=== PATIENT | female | born 1960 | race Caucasian/White ===

== ENCOUNTER → 2018-02-18 | Outpatient (CLI) | payer BC ==
--- NOTE | 2018-02-18 15:14 | US ---
EXAMINATION TYPE: US axilla LT DATE OF EXAM: 02/18/2018 COMPARISON: NONE CLINICAL HISTORY: R59.0 Localized enlarged lymph nodes. Enlarged hypervascular lymph node noted measuring 4.2 x 2.8 x 3.5cm. This demonstrates an abnormal ro unded morphology and extensive cortical thickening of at least 1.1 cm. Adjacent to this there are mu ltiple additional enlarged and prominent lymph nodes left axillary noted. IMPRESSION: Abnormal left axillary adenopathy with the largest suspicious lymph node measuring up to 4.2 cm with extensive cortical thickening. Biopsy is recommended in addition to diagnostic mammograp hic workup if not recently performed.
== END | disposition home or self-care (01) ==
LOC: RADUSWWP 14:35
PROVIDERS: ATTEND Family Medicine
DX: R59.0 Localized enlarged lymph nodes (principal)

== ENCOUNTER 2018-03-26 08:51 | Day surgery (SDC) | payer BC ==
[2018-03-26 09:09] VITALS: BP 136/81; PULSE 68; RESP 20; TEMP 97.9
--- NOTE | 2018-03-26 10:00 | US ---
ULTRASOUND GUIDED CORE BIOPSY LEFT AXILLA LYMPH NODE: CLINICAL HISTORY: Left axillary adenopathy FINDINGS: The procedure was explained to the patient. The risks, complications, benefits and alternatives were discussed and any questions were answered. Informed consent was obtained. Patient was placed supin e on the ultrasound table and prepped and draped in the usual sterile fashion. Utilizing a 18 gauge needle, 3 passes were made into the requested left axilla lymph node. Patient was stable throughout the procedure. Pathology is pending. All elements of maximal barrier and sterile technique were utilized. IMPRESSION: 1. Successful ultrasound guided core biopsy left axilla lymph node.
== END 2018-03-26 10:00 | disposition home or self-care (01) ==
LOC: RADPROMAIN 08:51
PROVIDERS: ATTEND Family Medicine
DX: R59.0 Localized enlarged lymph nodes (principal)
CPT/HCPCS: 38505; 76942

== ENCOUNTER 2018-05-23 11:19 | Day surgery (SDC) | payer BC ==
[~2018-05-23 11:19] MED LIST: HEPARIN SODIUM,PORCINE 5,000 UNIT/ML 1 ML VIAL SQ ONE; Pre Op ABX Message 1 EACH MISC MISCELLANE ONE
[2018-05-23 11:50] VITALS: RESP 18; TEMP 98.5
[2018-05-23] MEDS ORDERED: LACTATED RINGERS 1,000 ML IV ONE (12:04)
[2018-05-23] MEDS ORDERED: ONDANSETRON 4 MG/2 ML VIAL IVP ONE (12:14)
[2018-05-23] MEDS ORDERED: DEXAMETHASONE SOD PHOS (MDV) 100 MG/10 ML VIAL IVP ONE (12:14)
[2018-05-23] MEDS ORDERED: ROPIVACAINE 5 MG/ML 30 ML VIAL MISCELLANE ONE ×2 (12:59)
[2018-05-23] MEDS ORDERED: fentaNYL (PF) 50 MCG/ML 2 ML AMP ONE (13:30)
[2018-05-23] MEDS ORDERED: MIDAZOLAM 2 MG/2 ML VIAL ONE (13:30)
[2018-05-23] MEDS ORDERED: PROPOFOL 10 MG/ML 20 ML VIAL IV ONE (13:30)
[2018-05-23] MEDS ORDERED: LIDOCAINE 1% INJ 10MG/ML (20 ML MDV) ONE (13:30)
[2018-05-23] MEDS ORDERED: IV FLUID CONTINUATION 300 ML IV ONE (14:35)
[2018-05-23] MEDS ORDERED: NALOXONE 0.4 MG/ML 1 ML VIAL IV PRN (14:41)
--- NOTE | 2018-05-23 14:44 | P.OP ---
Date of Procedure: 05/23/18 Procedure(s) Performed: PREOPERATIVE DIAGNOSIS: Adenopathy with skin rash POSTOPERATIVE DIAGNOSIS: Same PROCEDURE: Left inguinal lymph node excisional biopsy with biopsy left thigh rash SURGEON: Greg EBL: Minimal ANESTHESIA: Sedation and local COMPLICATIONS: None OPERATIVE PROCEDURE: Patient was placed in the supine position. The patient's groin and leg were prepped and draped in usual sterile fashion. The skin was localized. A small incision was made overlying the palpable node. The node was easily excised with the use of blunt dissection and cautery. Clips were also used on the small lymphatics and vasculature. This node measured approximately 3 x 1.5 cm. The subcutaneous tissues were closed using 3-0 Vicryl sutures and the skin using 4-0 Monocryl sutures. Using fresh instruments a small skin biopsy was taken of the left anterior thigh. This is about 1 cm in size. Subcutaneous tissues were closed using 3-0 Vicryl sutures in the skin using 4-0 Monocryl sutures. Steri-Strips and sterile dressings were applied. DISPOSITION: Stable to recovery room
[2018-05-23] MEDS ORDERED: HYDROcodone/APAP 5-325MG 1 EACH TAB PO ONE (14:48)
[2018-05-23 15:08] VITALS: BP 117/75; PULSE 77
== END 2018-05-23 15:19 | disposition home or self-care (01) ==
LOC: OR 11:19
PROVIDERS: ATTEND Surgery
DX: R59.1 Generalized enlarged lymph nodes (principal); L30.8 Other specified dermatitis; Z79.2 Long term (current) use of antibiotics; Z79.52 Long term (current) use of systemic steroids; Z79.899 Other long term (current) drug therapy; Z91.030 Bee allergy status; Z91.09 Other allergy status, other than to drugs and biological substances; Z78.0 Asymptomatic menopausal state; Z98.51 Tubal ligation status
CPT/HCPCS: 38500; 11100; J2250; J1644; J2405; J2001; J3010; J1100; J2795; J2704; 88305; 88307; 88341; 88342

== ENCOUNTER → 2018-05-31 | Outpatient (CLI) | payer BC ==
--- NOTE | 2018-05-31 15:38 | CT ---
EXAMINATION TYPE: CT soft tissue neck wo con DATE OF EXAM: 05/31/2018 COMPARISON: None HISTORY: 57-year-old female Multiple swollen lymph nodes. TECHNIQUE: Contiguous axial scanning of the soft tissues of the neck without IV contrast. Coronal and sagittal reconstructions performed. CT DLP: 628.7 mGycm Automated exposure control for dose reduction was used. FINDINGS: Visualized noncontrast appearance of the intracranial structures show no gross abnormality. Paranasal sinuses and mastoid air cells are well pneumatized. Prominent cerumen in the left external auditory canal. Orbits and globes are intact. Allowing for noncontrast technique, the nasopharynx is clear. Some asymmetric soft tissue in the region of the left palatine tonsil may be due to redundant tissues . Bilateral palatine calcifications suggests sequela of prior infection. The glottic and subglottic structures as well as the tracheal column are clear. Epiglottis and prevertebral soft tissues are within normal limits. There is diffuse lymphadenopathy throughout the neck including the bilateral parotid space measuring up to 1.1 cm, upper cervical spine measuring up to 1.6 cm short axis in the posterior triangle of the neck measuring up to 1.7 cm in axis. Lymphadenopathy is right greater than left. Additional innumera ble supraclavicular lymph nodes. Many are very small. IMPRESSION: DIFFUSE CERVICAL LYMPHADENOPATHY ALSO INVOLVING THE PAROTID SPACE AND POSTERIOR TRIANGLE OF THE NECK, RIGHT GREATER THAN LEFT. LYMPH NODES MEASURE UP TO 1.7 CM SHORT AXIS. CORRELATE FOR SYSTEMIC INFECTI ONS AND LYMPHOMA. CHEST, ABDOMEN, AND PELVIS REPORTED SEPARATELY.
--- NOTE | 2018-05-31 16:25 | CT ---
EXAMINATION TYPE: CT ChestAbdPelvis wo con DATE OF EXAM: 05/31/2018 COMPARISON: None HISTORY: 57 year-old female multiple swollen lymph nodes. TECHNIQUE: Contiguous axial scanning of the chest, abdomen, and pelvis without IV contrast. Coronal a nd sagittal reconstructions performed. CT DLP: 1182.1 mGycm Automated exposure control for dose reduction was used. FINDINGS: Chest: Heart normal size without pericardial effusion. Coronary vascular calcifications are present. Borderline ectasia ascending aorta 3.5 cm. There is conventional arch vessel branching anatomy. Evaluation of the lungs shows strandy atelectasis anterior mid lung regions. No consolidation or pleu ral effusion. ABDOMEN: Liver enlarged measuring 19.7 cm. Noncontrast appearance of the liver otherwise grossly unremarkable. There is cholelithiasis with gallstones measuring up to 1.2 cm. There is a 1.2 cm lipid rich adrenal adenoma with density of -1.7 Hounsfield units. Noncontrast appearance of the kidneys, spleen, and pancreas show no gross abnormality. Small divertic ulum of the second portion of the duodenum incidentally noted. No dilated small bowel, free fluid, or free air. Mild stool burden. Oral contrast progressed to the s plenic flexure. Left hemicolonic diverticulosis without pericolonic inflammatory change. LYMPHADENOPATHY FOLLOWS: Base of the neck along the posterior triangle measuring up to 1.4 cm, right greater than left. Numerous small supraclavicular lymph nodes, greater on the right measuring up to 1.0 cm. Bilateral axillary measuring up to 1.8 cm on the right and 2.4 cm on the left. Nodule within the posterior lateral right breast measuring 1.1 cm, axial image 34. Unclear if this re presents an anterior axillary lymph node are small breast mass, reference sagittal image 107. Numerous scattered nonenlarged mesenteric lymph nodes. Borderline sized retroperitoneal lymph nodes m easure up to 7 mm images along the right common iliac chain. Lymph node in the right retroperitoneum measures up to 6 mm, axial image 93. Along the obturator chain measuring 1.1 cm, right greater than left. Along the external iliac chain measuring 1.4 cm on the right and 1.1 cm on the left. Bilateral inguin al chains measuring up to 1.4 cm on the right and 1.5 cm on left. PELVIS: The posterior fibroid along the lower uterine segment partially exophytic measuring 5.0 cm wide. Blad ji is distended. No abnormal fluid collection in the pelvis. Bulging laxity of the levator ani muscu lature suggests pelvic floor relaxation. BONES: Degenerative changes lower lumbar spine. Endplate spondylosis mid to lower thoracic spine. Hemangioma within T10 vertebral body. No osseous destructive process seen. IMPRESSION: 1. BASE OF NECK LYMPHADENOPATHY (UP TO 1.4 CM), SUPRACLAVICULAR LYMPHADENOPATHY, BILATERAL AXILLARY L YMPHADENOPATHY (UP TO 2.4 CM), NUMEROUS NONENLARGED MESENTERIC LYMPH NODES, BORDERLINE SIZED RETROPER ITONEAL LYMPH NODES (MEASURING UP TO 7 MM), AND PELVIC LYMPHADENOPATHY ALONG THE OBTURATOR AND ILIAC CHAINS WELL THE BILATERAL INGUINAL REGIONS MEASURING UP TO 1.5 CM. CORRELATE FOR LYMPHOMA. 2. NODULE WITHIN THE POSTERIOR LATERAL RIGHT BREAST MEASURES 1.1 CM. UNCERTAIN IF THIS REPRESENTS AN ANTERIOR RIGHT AXILLARY LYMPH NODE OR BREAST MASS. CORRELATE WITH DIAGNOSTIC MAMMOGRAPHIC WORKUP. 3. INCIDENTAL: CHOLELITHIASIS, A 1.2 CM LIPID RICH ADRENAL ADENOMA ON THE LEFT, SIGMOID DIVERTICULOSI S, 5 CM POSTERIOR UTERINE FIBROID, AND PELVIC FLOOR RELAXATION.
== END | disposition home or self-care (01) ==
LOC: RADCTMAIN 09:25
PROVIDERS: ATTEND Internal Medicine Hematology & Oncology
DX: K80.20 Calculus of gallbladder without cholecystitis without obstruction (principal); R59.0 Localized enlarged lymph nodes; D35.02 Benign neoplasm of left adrenal gland; K57.30 Diverticulosis of large intestine without perforation or abscess without bleeding; D25.9 Leiomyoma of uterus, unspecified; N63.10 Unspecified lump in the right breast, unspecified quadrant; N81.89 Other female genital prolapse; Z88.8 Allergy status to other drugs, medicaments and biological substances; Z91.030 Bee allergy status
CPT/HCPCS: 70490; 71250; 74176

== ENCOUNTER 2018-06-11 10:43 | Day surgery (SDC) | payer BC ==
[2018-06-10 08:27] VITALS: BMI 29.2
[~2018-06-11 10:43] MED LIST changes: -HEPARIN SODIUM,PORCINE 5,000 UNIT/ML 1 ML VIAL SQ ONE; +LACTATED RINGERS 1,000 ML IV SCH; +LIDOCAINE 1% 20 ML VIAL (10MG/ML) FOR IV START INTRADERMA PRN; +MIDAZOLAM 2 MG/2 ML VIAL IV PRN; -Pre Op ABX Message 1 EACH MISC MISCELLANE ONE
[2018-06-11 11:13] VITALS: RESP 16; TEMP 97.6
[2018-06-11] MEDS ORDERED: PROPOFOL 10 MG/ML 20 ML VIAL IV ONE (12:01)
[2018-06-11] MEDS ORDERED: LIDOCAINE 1% INJ 10MG/ML (20 ML MDV) ONE (12:01)
[2018-06-11 12:48] VITALS: BP 123/73; PULSE 75
[2018-06-11 12:56] LABS: Basophils % (A) 1 %; Eosinophils # (A) 0.4 k/uL (0-0.7); Eosinophils % (A) 5 %; HCT 44.7 % (34.0-46.0); HGB 13.7 gm/dL (11.4-16.0); Lymphocytes # (A) 0.7 k/uL (1.0-4.8); Lymphocytes % (A) 10 %; MCH 26.2 pg (25.0-35.0); MCHC 30.8 g/dL (31.0-37.0); MCV 85.1 fL (80.0-100.0); Mean Platelet Volume 7.7; Monocytes # (A) 0.7 k/uL (0-1.0); Monocytes % (A) 9 %; Neutrophils # (A) 5.5 k/uL (1.3-7.7); Neutrophils % (A) 73 %; Platelet Count 195 k/uL (150-450); RBC 5.25 m/uL (3.80-5.40); RDW 13.8 % (11.5-15.5); WBC 7.6 k/uL (3.8-10.6)
--- NOTE | 2018-06-11 13:20 | PCN ---
PROCEDURE NOTE DATE OF PROCEDURE: 06/11/2018. PREOPERATIVE DIAGNOSIS: Lymphoma. POSTOPERATIVE DIAGNOSIS: Lymphoma. ANESTHESIA: Local with IV systemic sedation. DETAILS: Utilizing sterile technique the skin overlying the right iliac crest was prepared with ChloraPrep and alcohol. No BETADINE was used due to allergy. After adequate systemic sedation, a size 11, 4-inch [employer] needle was utilized to access the periosteum with ease. A total of 16 mL of aspirate and 2 core biopsies were obtained. The patient tolerated the procedure very well. There was no immediate procedure related complication. TOTAL BLOOD LOSS: Less than 1 mL. RESULTS: Pending. MMODL / IJN: [id number] /
== END 2018-06-11 13:11 | disposition home or self-care (01) ==
LOC: OR 10:43
PROVIDERS: ATTEND Internal Medicine Hematology & Oncology
DX: C86.5 Angioimmunoblastic T-cell lymphoma (principal); B37.0 Candidal stomatitis; R63.4 Abnormal weight loss; Z68.29 Body mass index [BMI] 29.0-29.9, adult; Z88.8 Allergy status to other drugs, medicaments and biological substances; Z91.030 Bee allergy status; Z98.51 Tubal ligation status
CPT/HCPCS: 38222; 85025; J2001; J2704

== ENCOUNTER → 2018-06-15 | Outpatient (CLI) | payer BC ==
--- NOTE | 2018-06-19 09:15 | PE ---
Nuclear medicine PET/CT HISTORY: Lymphoma, initial Patient received 12.1 mCi F-18 FDG intravenously in delayed scanning performed from the skull base to the mid thighs. Localization and attenuation correction CT scan was performed Correlation to CT chest abdomen pelvis 05/31/2018 Neck and chest: There is extensive adenopathy present greater on the right side of the neck with hype rmetabolic uptake, SUV approximately 5.5-6, along the posterior anterior cervical chains, adenopathy present in the bilateral axillary regions, hypermetabolic uptake SUV 5.12-7.7, as well as retrocaval pretracheal node which shows no hypermetabolic uptake. Along the mid esophagus posteriorly there is a node, there is a with mild uptake, SUV only 4. There is no evident lung mass. Abdomen pelvis: Gallstones are present. There is no evident liver mass. Retrocaval nodes are present with mild hypermetabolic uptake, SUV only 3.5. Periaortic node on the left also show some uptake, SUV 3.3, nodes in the left iliac location and right iliac location are enlarged and show associated hype rmetabolic uptake SUV 5.9-14.2. Bilateral inguinal nodes show associated hypermetabolic uptake, SUV 3 -4.8. Osseous structures are unremarkable IMPRESSION: Findings compatible with patient's history of lymphoma.
== END | disposition home or self-care (01) ==
LOC: RADPETMAIN 14:21
PROVIDERS: ATTEND Internal Medicine Hematology & Oncology
DX: C86.5 Angioimmunoblastic T-cell lymphoma (principal)
CPT/HCPCS: 78815; A9552

== ENCOUNTER → 2019-01-23 | Outpatient (CLI) | payer BC ==
--- NOTE | 2019-01-23 12:33 | CT ---
EXAMINATION TYPE: CT soft tissue neck wo con DATE OF EXAM: 01/23/2019 COMPARISON: 05/31/[address] 06/15/2018 HISTORY: 58-year-old female Lymphoma/rt side neck mass marked with a bb TECHNIQUE: Contiguous axial scanning of the soft tissues of the neck without IV contrast. Coronal and sagittal reconstructions performed. CT DLP: 364 mGycm Automated exposure control for dose reduction was used. FINDINGS: Right anterior chest wall injection port is present. Visualized intercranial structures, orbits and g lobes, paranasal sinuses, and mastoid air cells appear clear. Lack of IV contrast limits assessment of the mucosal space. Nasopharynx and oropharynx appear grossly clear. Epiglottis and prevertebral soft tissues are normal. There is motion artifact at the level of the larynx without gross anomaly seen here. The tracheal column and visualized upper lungs appear clear. There has been dramatic improvement in the radius diffuse cervical lymphadenopathy. Palpable marker along the right side of the upper neck overlies an enlarged 1.2 cm right submandibula r space lymph node. Which appears to be new from 05/31/2018. Residual scattered small cervical lymph n odes are present on both sides. In the visualized upper thorax, a 1.1 cm superior right paratracheal lymph node previously measured 1 .5 cm. The thyroid and submandibular glands appear grossly unremarkable. Parotid glands are mildly atrophic. Bones: Mild degenerative disc disease C5-C6. IMPRESSION: 1. DRAMATIC IMPROVEMENT IN THE PREVIOUS DIFFUSE CERVICAL LYMPHADENOPATHY COMPARED TO 05/31/2018. 2. HOWEVER, THE PALPABLE MARKER ON THE RIGHT INDICATES AN ENLARGED SOLITARY SUBMANDIBULAR LYMPH NODE MEASURING 1.2 CM THAT IS NEW FROM 05/31/2018. PATIENT SHOULD BE MONITORED FOR RECURRENT DISEASE.
== END ==
LOC: RADCTMAIN 11:32
PROVIDERS: ATTEND Nurse Practitioner Adult Health
DX: C86.5 Angioimmunoblastic T-cell lymphoma (principal); R22.0 Localized swelling, mass and lump, head
CPT/HCPCS: 70490

== ENCOUNTER → 2019-01-25 | Outpatient (CLI) | payer BC ==
[2019-01-25 11:30] LABS: Anisocytosis Slight; Basophils % (A) 1 %; Eosinophils # (A) 0.1 k/uL (0-0.7); Eosinophils % (A) 3 %; HCT 35.4 % (34.0-46.0); HGB 11.6 gm/dL (11.4-16.0); Hypochromasia Slight; Lymphocytes # (A) 0.7 k/uL (1.0-4.8); Lymphocytes % (A) 16 %; MCH 31.9 pg (25.0-35.0); MCHC 32.9 g/dL (31.0-37.0); MCV 96.8 fL (80.0-100.0); Macrocytosis Slight; Mean Platelet Volume 8.4; Monocytes # (A) 0.3 k/uL (0-1.0); Monocytes % (A) 7 %; Neutrophils # (A) 3.2 k/uL (1.3-7.7); Neutrophils % (A) 69 %; Platelet Count 129 k/uL (150-450); RBC 3.65 m/uL (3.80-5.40); RDW 19.3 % (11.5-15.5); WBC 4.6 k/uL (3.8-10.6)
[2019-01-25 17:08] LABS: Albumin 3.2 g/dL (3.80-4.90); Anion Gap 7.4 mmol/L (4.00-12.00); Calcium 8.6 mg/dL (8.7-10.3); Carbon Dioxide 28.6 mmol/L (21.6-31.8); Globulin 1.6 g/dL (1.6-3.3); Magnesium 1.8 mg/dL (1.5-2.4); Potassium 4.2 mmol/L (3.5-5.5); Total Bilirubin 0.5 mg/dL (0.3-1.2); Total Protein 4.8 g/dL (6.2-8.2); Uric Acid 5.1 mg/dL (2.9-7.7)
== END | disposition home or self-care (01) ==
LOC: LABWHC1 10:56
PROVIDERS: ATTEND Nurse Practitioner Adult Health
DX: C86.5 Angioimmunoblastic T-cell lymphoma (principal); B37.0 Candidal stomatitis; R21 Rash and other nonspecific skin eruption; Z71.3 Dietary counseling and surveillance
CPT/HCPCS: 36415; 80053; 83615; 83735; 84550; 85025

== ENCOUNTER → 2019-01-31 | Outpatient (CLI) | payer BC ==
--- NOTE | 2019-02-03 17:23 | PE ---
EXAMINATION TYPE: PET CT fusion skull to thigh DATE OF EXAM: 01/31/2019 COMPARISON: PET/CT June 15, 2018. Whole body CT May 31, 2018. 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 Had left groin surgery in 2018 per patient. History of chemotherapy completed treatment December 02, 2018 per patient. TECHNIQUE: Following the intravenous administration of 14.193 mCi of F-18 FDG, whole body images are performed from the skull base to the midthigh. Images are reviewed on the computer in the coronal, axial, and sagittal planes. Reconstructed rotating images are created on independent workstation and reviewed on the computer. A noncontrast CT is performed in conjunction with the PET scan. SCAN: Subsequent Scan FINDINGS: Mean SUV mediastinum: 0.62 Liver mean SUV: 1.4 SKULL BASE AND NECK: There appears to be worsening bilateral innumerable hypermetabolic lymph nodes, larger in size and more prominent hypermetabolic uptake in the right neck versus left neck. For refe tamice a right submandibular lymph node axial image 37 measures 1.5 x 1.3 cm current study versus 0.6 x 0.6 cm prior study image 38, max SUV is 9.43 on current study. There is hypermetabolic adenopathy i n the posterior cervical triangle. Hypermetabolic adenopathy extends from above the hyoid bone to sup raclavicular region. There appear to be abnormal hypermetabolic masses in the visualized bilateral upper extremities on th e MIP image similar or slightly more prominent from prior. CHEST, MEDIASTINUM, AND HILAR REGION: Abnormal hypermetabolic bilateral axillary lymph nodes remain p resent. Some are clearly diminished in size from prior study. For reference anterior superior left ax illary lymph node measured 4.7 x 2.3 cm prior study image 63 versus 1.7 x 0.7 cm current study image 65. There are however larger mediastinal lymph nodes which are more hypermetabolic, for reference subcari nal lymph node measures 1.6 x 1.2 cm axial image 82, max SUV is 14.81. ABDOMEN AND PELVIS: Spleen is enlarged in size with some hypermetabolic foci for reference axial imag e [address] correlate. There are more hypermetabolic retroperitoneal lymph nodes increased in size along course of aorta jess aterally extending along iliac chain vessels into the bilateral groin region. Fairly large right exte rnal iliac chain lymph node measuring 2.7 x 1.8 cm axial image 201 is fairly stable in size from prio r. There is enlarging hypermetabolic right groin lymph node measuring 2.6 x 2.3 cm axial image 220, m ax SUV is 28.87. OSSEOUS STRUCTURES: No areas of suspicious hypermetabolic uptake. OTHER CT: There is new right internal jugular Mediport catheter terminating in SVC. Moderate coronary artery calcification is redemonstrated which is noted marked underlying coronary ar susy disease. Dependent calcified gallstones are again seen. Low dense thickening to left adrenal gland consistent with benign lipid rich adenomas redemonstrated. Calcified lower uterine segment suspected fibroid uterus is once again redemonstrated. IMPRESSION: Overall mixed response with some lymph nodes increasing and decreasing in size as well as some stable lymph nodes. Majority lymph nodes show increased hypermetabolic uptake on current study versus prior. Overall more lymph nodes enlarging in size and hypermetabolic uptake versus stable or i mproving noted. Mild to moderate cerebral acute on chronic paranasal sinus disease is seen as detailed above
== END | disposition home or self-care (01) ==
LOC: RADPETMAIN 14:28
PROVIDERS: ATTEND Internal Medicine Hematology & Oncology
DX: C86.5 Angioimmunoblastic T-cell lymphoma (principal); Z92.21 Personal history of antineoplastic chemotherapy
CPT/HCPCS: 78815; A9552

== ENCOUNTER → 2019-06-07 | Outpatient (CLI) | payer BC ==
--- NOTE | 2019-06-08 13:36 | PE ---
Nuclear medicine PET/CT HISTORY: Angioimmunoblastic T-cell lymphoma, subsequent Patient received 11.8 mCi F-18 FDG intravenously in delayed scanning was performed from the skull bas e to the mid thighs. Localization and attenuation correction CT scan was performed. Correlation to prior nuclear medicine PET/CT dated 01/31/2019. Neck and chest: no cervical, mediastinal or hilar adenopathy. Left axillary node is enlarged with a short axis of 1.4 cm which has decreased in size, however multiple additional axillary nodes have dec reased in size. No suspicious hypermetabolic uptake. Coronary artery calcifications are present. No e vident lung mass. No pleural pericardial effusion. There is a port in the right chest, catheter tip c ourses via the internal jugular vein into the superior vena cava. ABDOMEN: Multiple dependent stones are present within the gallbladder. There is no retroperitoneal ad enopathy or evident liver mass. There is no suspicious hypermetabolic uptake. Diverticular change pre sent within the sigmoid colon. Probable calcified fibroid within the uterus. Postop changes are noted to the left groin. There are some scattered lymph nodes within the groin bilaterally, some mild prom inence of inguinal nodes is present of the nodes are decreased in size from prior exam and there is n o associated hypermetabolic uptake. Osseous structures within normal limits. IMPRESSION: Marked treatment response as described.
== END | disposition home or self-care (01) ==
LOC: RADPETMAIN 07:46
PROVIDERS: ATTEND Internal Medicine Hematology & Oncology
DX: C86.5 Angioimmunoblastic T-cell lymphoma (principal); I25.10 Atherosclerotic heart disease of native coronary artery without angina pectoris; K80.20 Calculus of gallbladder without cholecystitis without obstruction
CPT/HCPCS: 78815; A9552

== ENCOUNTER → 2019-08-29 | Outpatient (CLI) | payer BC ==
--- NOTE | 2019-09-01 12:44 | PE ---
"Nuclear medicine PET/CT HISTORY: Lymphoma, subsequent Patient received 12.7 mCi F-18 FDG intravenously in delayed scanning was performed from the skull bas e to the mid thighs. Localization and attenuation correction CT scan was performed. Correlation to prior nuclear medicine PET/CT 06/07/2019 Neck and CHEST: There are multiple small nodules along the anterior and posterior cervical chains, goldstein bmandibular location on the left, supraclavicular region on the left which show associated hypermetab olic uptake but are not enlarged. SUV is approximately 2.9-4.8. Extensive axillary adenopathy left greater than right. SUV on the left 6.4, retrocaval pretracheal ad enopathy SUV 2.9, bihilar mild hilar uptake, SUV 2.8 on the right, subcarinal uptake 2.8 SUV. There i s a small left pleural effusion. There are coronary artery calcifications present. ABDOMEN: The spleen is enlarged. There are areas of low-attenuation consistent with splenic infarcts, the spleen shows increased uptake with SUV 6.4-7.2 aside from the areas of low uptake likely corresp onding to areas of infarction. Gallstones are present. Liver shows no mass or suspicious hypermetabolic uptake. Some mild uptake pre sent in the portal region. There is likely a duodenal diverticulum present. No ascites. There is a fi broid uterus with calcifications, uterus is bulky. Diverticular change associated with the sigmoid co jasbir. Minimal fluid present within the pelvis. Bilateral groin uptake, multiple nodes show hypermetabolic uptake and show enlargement bilaterally, S UV 2.2-5. Osseous structures show mild diffuse increased uptake likely due to marrow stimulation. Extremities: Within the subcutaneous fat in the upper extremities there are soft tissue masses which show associated hypermetabolic uptake bilaterally better seen on the left measuring 9 mm on axial rafiq ge 26, SUV 6.7. IMPRESSION: Interval progression in multiple areas of suspicious hypermetabolic uptake and lymphadeno alonso. Probable splenic infarctions, splenomegaly. Left pleural effusion. A Yellow level critical message alert has been initiated for Gera Dhillon MD~[id number] via the [employer] | Critical Results System on 09/01/2019 12:41 PM. This message alert has been sent to Gera Dhillon MD~DEONTE via the preferences provided by the clinician for the receipt of Radiology Critical Findings. Message ID [id number]."
== END | disposition home or self-care (01) ==
LOC: RADPETMAIN 17:08
PROVIDERS: ATTEND Internal Medicine Hematology & Oncology
DX: J90 Pleural effusion, not elsewhere classified (principal)
CPT/HCPCS: 78815; A9552

== ENCOUNTER 2019-09-03 08:53 | Day surgery (SDC) | payer BC ==
[2019-09-03 09:23] VITALS: RESP 18; TEMP 98.1
[2019-09-03 10:39] VITALS: BP 116/60; PULSE 97
--- NOTE | 2019-09-03 11:22 | US ---
ULTRASOUND GUIDED CORE BIOPSY RIGHT INGUINAL LYMPH NODE: CLINICAL HISTORY: Request for right groin lymph node biopsy FINDINGS: The procedure was explained to the patient. The risks, complications, benefits and alternatives were discussed and any questions were answered. Informed consent was obtained. Patient was placed supin e on the ultrasound table and prepped and draped in the usual sterile fashion. Utilizing a 18 gauge needle, four passes were made into the requested nodule. Patient was stable throughout the procedure. Pathology is pending. All elements of maximal barrier and sterile technique were utilized. IMPRESSION: 1. Successful ultrasound guided core biopsy right inguinal lymph node.
== END 2019-09-03 10:40 | disposition home or self-care (01) ==
LOC: RADPROMAIN 08:53
PROVIDERS: ATTEND Internal Medicine Hematology & Oncology
DX: C86.5 Angioimmunoblastic T-cell lymphoma (principal); Z88.8 Allergy status to other drugs, medicaments and biological substances
CPT/HCPCS: 38505; 76942; 88305

== ENCOUNTER 2019-09-13 10:19 | Inpatient (IN) | payer BC ==
[2019-09-13] MEDS ORDERED: SODIUM CHLORIDE 0.9% 1,000 ML IV STA ×2 (10:45→14:21)
[2019-09-13] MEDS ORDERED: LIDOCAINE VISCOUS 2% 15 ML CUP MUCOUS MEM ONE (11:19)
[2019-09-13] MEDS ORDERED: fentaNYL (PF) 50 MCG/ML 2 ML AMP IVP STA (11:19)
--- NOTE | 2019-09-13 11:21 | ED ---
General Adult HPI - General Chief complaint: Weakness Stated complaint: Weak, not eating or drinking Time Seen by Provider: 09/13/19 10:43 Source: patient, family Mode of arrival: ambulatory Limitations: physical limitation - History of Present Illness Initial comments: Dictation was produced using [employer] dictation software. please excuse any grammatical, word or spelling errors. Chief Complaint: 58-year-old female past medical history of T-cell lymphoma presents with generalized weakness and exertional fatigue. History of Present Illness: 58-year-old female she presents today with generalized weakness and exertional fatigue. Patient states she's been feeling more and more weak over the last 48-72 hours. Patient was seeing a primary care physician when she was recently diagnosed with cytomegalovirus. She has a recurrence of her T-cell lymphoma. Patient denies any constitutional symptoms. She does report she has a history of pancytopenia. She has been having multiple sores to her oral area. She's been trying to use Orajel with minimal improvement. Patient is with family family is concerned that patient might not survive to make her appointment with specialist in [place] in a couple days. Family believes that she is to be treated for cytomegalovirus. She reports not taking any immunosuppressive medications. Patient was also on a recent steroid burst dosing. The ROS documented in this emergency department record has been reviewed and confirmed by me. Those systems with pertinent positive or negative responses have been documented in the HPI. All other systems are other negative and/or noncontributory. PHYSICAL EXAM: General Impression: Alert and oriented x3, not in acute distress HEENT: Normocephalic atraumatic, extra-ocular movements intact, pupils equal and reactive to light bilaterally, dry mucous membranes, multiple aphthous ulcers to the nuchal surface and soft palate Cardiovascular: Heart regular rate and rhythm, S1&S2 audible, no murmurs, rubs or gallops Chest: Lungs clear to auscultation bilaterally, no rhonchi, no wheeze, no rales Abdomen: Bowel sounds present, abdomen soft, non-tender, non-distended, no organomegaly Musculoskeletal: Pulses present and equal in all extremities, no peripheral edema Motor: no focal deficits noted Neurological: CN II-XII grossly intact, no focal motor or sensory deficits noted Skin: Intact with no visualized rashes Psych: Normal affect and mood Rectal exam: Patient refused ED course: 58-year-old female with past medical history of T-cell lymphoma and new diagnosis of cytomegalovirus presents with generalized fatigue. As upon arrival shows blood pressure 90/49, rest of vital signs within acceptable limits. She refuses rectal exam. Patient given intravenous fluids. Laboratory evaluation obtained. Hemoglobin is 3.5 with hematocrit of 10.3. Platelet count of 40. Coag panel shows minor 1.2. Metabolic panel shows sodium 132. Lactic acidosis of 2.7. Rest metabolic panel is grossly unremarkable. Discussed patient case Dr. Harper who recommends patient be admitted to telemetry with blood transfusion. Patient be admitted to cardiac telemetry with consultation to hematology. Patient were for 2 units of transfusion. She does have scheduled CBC checks. Request by hospitalists discussion was held with hematology. Discussed patient case with Dr. Aguirre who feels patient does not need to be transferred and can currently be managed here in our hospital at this time.. Dr. Aguirre requested several labs which were ordered. Dr. Domo flynn did not fill comfortable taking care of this patient and requested that patient be transferred. Family was updated of these results and they were adamant about staying here. We discussed patient case Dr. Aguirre who still continues fill patient is an appropriate candidate for admission to our hospital. Discussed patient case to Dr. Pereira who is agreeable with patient being admitted to our facility with consultation to hematology and infectious disease. Patient family is satisfied with this disposition. EKG interpretation: Ventricular rate therefore, normal sinus rhythm, MS interval 160, care is 80, QTc 440. No MS prolongation, no QTC prolongation, no ST or T-wave changes noted. . Overall, this EKG is unremarkable - Related Data Home Medications Medication Instructions Recorded Confirmed Allopurinol [Zyloprim] 100 mg PO DAILY 09/03/19 09/13/19 Ascorbic Acid [Vitamin C] 500 mg PO DAILY 09/13/19 09/13/19 Cholecalciferol [Vitamin D3] 400 unit PO DAILY 09/13/19 09/13/19 HYDROcodone/APAP 5-325MG [[place] 1 tab PO Q6H PRN 09/13/19 09/13/19 5-325] methylPREDNISolone Dose Pack See Taper PO DAILY 09/13/19 09/13/19 [Medrol Dose Pack] Allergies Allergy/AdvReac Type Severity Reaction Status Date / Time bee venom protein (honey bee) Allergy Anaphylaxis Verified 09/13/19 12:25 iodine Allergy Rash/Hives Verified 09/13/19 12:25 Review of Systems ROS Statement: Those systems with pertinent positive or pertinent negative responses have been documented in the HPI. ROS Other: All systems not noted in ROS Statement are negative. Past Medical History Past Medical History: Cancer Additional Past Medical History / Comment(s): LYMPHOMA 2018. GENERALIZED BODY RASH-LYMPHOCYTIC DERMATITIS History of Any Multi-Drug Resistant Organisms: None Reported Additional Past Surgical History / Comment(s): c- section x2, ectopic surgery, D&C, EEXCISION LT INGUINAL LYMPH NODE WITH BIOPSY AND BX LT THIGH RASH, bone marrow bx 06/11/18 Past Anesthesia/Blood Transfusion Reactions: No Reported Reaction Past Psychological History: No Psychological Hx Reported Smoking Status: Never smoker Past Alcohol Use History: None Reported Past Drug Use History: None Reported - Past Family History Mother Family Medical History: Cancer Additional Family Medical History / Comment(s): cervical General Exam Limitations: physical limitation Course Vital Signs 09/13/19 09/13/19 09/13/19 10:24 11:27 12:27 Temperature 98.7 F Pulse Rate 93 98 102 H Respiratory 19 18 18 Rate Blood Pressure 92/49 114/98 115/56 O2 Sat by Pulse 97 100 98 Oximetry 09/13/19 09/13/19 09/13/19 13:20 14:00 14:33 Temperature Pulse Rate 99 101 H 100 Respiratory 18 18 18 Rate Blood Pressure 97/42 96/45 100/56 O2 Sat by Pulse 100 98 98 Oximetry Medical Decision Making - Lab Data Result diagrams: 09/13/19 11:40 09/13/19 11:40 Lab Results 09/13/19 09/13/19 09/13/19 Range/Units 11:40 11:40 11:40 WBC 4.5 (3.8-10.6) k/uL RBC 1.20 L (3.80-5.40) m/uL Hgb 3.5 L* (11.4-16.0) gm/dL Hct 10.3 L* (34.0-46.0) % MCV 85.7 (80.0-100.0) fL MCH 29.1 (25.0-35.0) pg MCHC 33.9 (31.0-37.0) g/dL RDW 17.5 H (11.5-15.5) % Plt Count 40 L (150-450) k/uL Neutrophils % (Manual) 44 % Lymphocytes % (Manual) 56 % Neutrophils # (Manual) 1.98 (1.3-7.7) k/uL Lymphocytes # (Manual) 2.52 (1.0-4.8) k/uL Nucleated RBCs 0 (0-0) /100 WBC Manual Slide Review Performed Hypochromasia (manual) Present Anisocytosis Slight PT (9.0-12.0) sec INR (<1.2) APTT (22.0-30.0) sec Sodium 132 L (137-145) mmol/L Potassium 4.7 (3.5-5.1) mmol/L Chloride 101 (98-107) mmol/L Carbon Dioxide 23 (22-30) mmol/L Anion Gap 8 mmol/L BUN 34 H (7-17) mg/dL Creatinine 0.87 (0.52-1.04) mg/dL Est GFR (CKD-EPI)AfAm 85 (>60 ml/min/1.73 sqM) Est GFR (CKD-EPI)NonAf 74 (>60 ml/min/1.73 sqM) Glucose 117 H (74-99) mg/dL Plasma Lactic Acid Ralph 2.7 H* (0.7-2.0) mmol/L Calcium 8.7 (8.4-10.2) mg/dL Phosphorus 4.2 (2.5-4.5) mg/dL Magnesium 2.3 (1.6-2.3) mg/dL Total Bilirubin 1.2 (0.2-1.3) mg/dL AST 27 (14-36) U/L ALT 16 (9-52) U/L Alkaline Phosphatase 63 (38-126) U/L Lactate Dehydrogenase (313-618) U/L Total Protein 6.2 L (6.3-8.2) g/dL Albumin 3.4 L (3.5-5.0) g/dL TSH 2.340 (0.465-4.680) mIU/L Free T4 1.60 (0.78-2.19) ng/dL Free T3 pg/mL 1.5 L (2.8-5.3) pg/ml Stool Occult Blood (Negative) Blood Type Blood Type Confirm Blood Type Recheck Bld Type Recheck Status Antibody Screen Crossmatch Spec Expiration Date 09/13/19 09/13/19 09/13/19 Range/Units 11:40 11:40 11:40 WBC (3.8-10.6) k/uL RBC (3.80-5.40) m/uL Hgb (11.4-16.0) gm/dL Hct (34.0-46.0) % MCV (80.0-100.0) fL MCH (25.0-35.0) pg MCHC (31.0-37.0) g/dL RDW (11.5-15.5) % Plt Count (150-450) k/uL Neutrophils % (Manual) % Lymphocytes % (Manual) % Neutrophils # (Manual) (1.3-7.7) k/uL Lymphocytes # (Manual) (1.0-4.8) k/uL Nucleated RBCs (0-0) /100 WBC Manual Slide Review Hypochromasia (manual) Anisocytosis PT 12.2 H (9.0-12.0) sec INR 1.2 H (<1.2) APTT 20.2 L (22.0-30.0) sec Sodium (137-145) mmol/L Potassium (3.5-5.1) mmol/L Chloride (98-107) mmol/L Carbon Dioxide (22-30) mmol/L Anion Gap mmol/L BUN (7-17) mg/dL Creatinine (0.52-1.04) mg/dL Est GFR (CKD-EPI)AfAm (>60 ml/min/1.73 sqM) Est GFR (CKD-EPI)NonAf (>60 ml/min/1.73 sqM) Glucose (74-99) mg/dL Plasma Lactic Acid Ralph (0.7-2.0) mmol/L Calcium (8.4-10.2) mg/dL Phosphorus (2.5-4.5) mg/dL Magnesium (1.6-2.3) mg/dL Total Bilirubin (0.2-1.3) mg/dL AST (14-36) U/L ALT (9-52) U/L Alkaline Phosphatase (38-126) U/L Lactate Dehydrogenase 1345 H (313-618) U/L Total Protein (6.3-8.2) g/dL Albumin (3.5-5.0) g/dL TSH (0.465-4.680) mIU/L Free T4 (0.78-2.19) ng/dL Free T3 pg/mL (2.8-5.3) pg/ml Stool Occult Blood (Negative) Blood Type Blood Type Confirm A Positive Blood Type Recheck Bld Type Recheck Status Antibody Screen Crossmatch Spec Expiration Date 09/13/19 09/13/19 Range/Units 12:47 13:00 WBC (3.8-10.6) k/uL RBC (3.80-5.40) m/uL Hgb (11.4-16.0) gm/dL Hct (34.0-46.0) % MCV (80.0-100.0) fL MCH (25.0-35.0) pg MCHC (31.0-37.0) g/dL RDW (11.5-15.5) % Plt Count (150-450) k/uL Neutrophils % (Manual) % Lymphocytes % (Manual) % Neutrophils # (Manual) (1.3-7.7) k/uL Lymphocytes # (Manual) (1.0-4.8) k/uL Nucleated RBCs (0-0) /100 WBC Manual Slide Review Hypochromasia (manual) Anisocytosis PT (9.0-12.0) sec INR (<1.2) APTT (22.0-30.0) sec Sodium (137-145) mmol/L Potassium (3.5-5.1) mmol/L Chloride (98-107) mmol/L Carbon Dioxide (22-30) mmol/L Anion Gap mmol/L BUN (7-17) mg/dL Creatinine (0.52-1.04) mg/dL Est GFR (CKD-EPI)AfAm (>60 ml/min/1.73 sqM) Est GFR (CKD-EPI)NonAf (>60 ml/min/1.73 sqM) Glucose (74-99) mg/dL Plasma Lactic Acid Ralph (0.7-2.0) mmol/L Calcium (8.4-10.2) mg/dL Phosphorus (2.5-4.5) mg/dL Magnesium (1.6-2.3) mg/dL Total Bilirubin (0.2-1.3) mg/dL AST (14-36) U/L ALT (9-52) U/L Alkaline Phosphatase (38-126) U/L Lactate Dehydrogenase (313-618) U/L Total Protein (6.3-8.2) g/dL Albumin (3.5-5.0) g/dL TSH (0.465-4.680) mIU/L Free T4 (0.78-2.19) ng/dL Free T3 pg/mL (2.8-5.3) pg/ml Stool Occult Blood Negative (Negative) Blood Type A Positive Blood Type Confirm Blood Type Recheck No Previous Record Bld Type Recheck Status CABO Indicated Antibody Screen NEGATIVE Crossmatch See Detail Spec Expiration Date 09/16/20192299 Disposition Clinical Impression: Anemia Disposition: ADMITTED IP TO THIS [facility] Condition: Fair Referrals: Yeyo Rainey MD [Primary Care Provider] - 1-2 days Decision Time: 14:56
[2019-09-13 12:10] LABS: Anisocytosis Slight; MCH 29.1 pg (25.0-35.0); MCHC 33.9 g/dL (31.0-37.0); MCV 85.7 fL (80.0-100.0); Mean Platelet Volume 8.9; RDW 17.5 % (11.5-15.5); WBC 4.5 k/uL (3.8-10.6)
[2019-09-13 12:12] LABS: HGB 3.5 gm/dL (11.4-16.0)
[2019-09-13 12:13] LABS: HCT 10.3 % (34.0-46.0)
[2019-09-13 12:20] LABS: Albumin 3.4 g/dL (3.5-5.0); Calcium 8.7 mg/dL (8.4-10.2); Magnesium 2.3 mg/dL (1.6-2.3); Phosphorus 4.2 mg/dL (2.5-4.5); Potassium 4.7 mmol/L (3.5-5.1); Total Bilirubin 1.2 mg/dL (0.2-1.3); Total Protein 6.2 g/dL (6.3-8.2)
[2019-09-13 12:22] LABS: INR 1.2 (<1.2); Prothrombin Time 12.2 sec (9.0-12.0)
[2019-09-13 12:27] LABS: Hypochromasia (M) Present; Lymphocytes # (M) 2.52 k/uL (1.0-4.8); Neutrophils # (M) 1.98 k/uL (1.3-7.7); Neutrophils % (M) 44 %; Nucleated Red Blood Cells 0 /100 WBC (0-0); Total Cells Counted 100
[2019-09-13 12:28] LABS: Platelet Count 40 k/uL (150-450)
[2019-09-13 12:33] LABS: Partial Thromboplastin Time 20.2 sec (22.0-30.0)
[2019-09-13 12:36] LABS: T4, Free (Free Thyroxine) 1.6 ng/dL (0.78-2.19)
[2019-09-13] MEDS ORDERED: NALOXONE 0.4 MG/ML 1 ML VIAL IV PRN (12:49)
[2019-09-13] MEDS ORDERED: ONDANSETRON 4 MG/2 ML VIAL IVP PRN (12:49)
[2019-09-13] MEDS: SODIUM CHLORIDE 0.9% 1,000 ML IV SCH (13:13)
[2019-09-13] MEDS: PANTOPRAZOLE 40 MG/10 ML VIAL IV SCH (13:14)
--- NOTE | 2019-09-13 13:46 | XR ---
EXAMINATION TYPE: XR chest 2V DATE OF EXAM: 09/13/2019 COMPARISON: NONE HISTORY: Weakness TECHNIQUE: Frontal and lateral views of the chest are obtained. FINDINGS: Cardiac silhouette is within normal limits of size. Bilateral hilar fullness, likely from underlying adenopathy. No focal airspace consolidation. No pleural effusion or pneumothorax. Right in ternal jugular venous port with the tip projecting over the superior vena cava. IMPRESSION: No acute cardiopulmonary process.
[2019-09-13] MEDS: ACETAMINOPHEN TAB 325 MG TAB PO PRN (15:42)
[2019-09-13] MEDS: HYDROcodone/APAP 5-325MG 1 EACH TAB PO PRN (15:57)
[2019-09-13 17:10] LABS: % Iron Saturation 89.84 (12.00-45.00)
[2019-09-13] MEDS: LIDOCAINE VISCOUS 2% 15 ML CUP MUCOUS MEM PRN (19:26)
--- NOTE | 2019-09-13 22:34 | CONS ---
CONSULTATION DATE OF SERVICE: September 13, 2019. CHIEF COMPLAINT: Very weak and tired. REASON FOR CONSULTATION: Lymphoma. HISTORY OF PRESENT ILLNESS: Sofi is a very pleasant 58 years old lady, very well known to our practice. 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 The patient was initially treated with CHOEP regimen. She went into remission and this was followed by autologous stem cell transplantation at [facility] in November of 2018. Unfortunately, recently she has started to have recurrent weakness, fever, night sweats, and also feeling very fatigue and loss of appetite. She did have a repeat PET scan and her blood count have been drifting down. This led to a repeat a PET scan which was done on 09/01/2019, which revealed multiple small lung nodes along the posterior iliac chain and also a suspicious left supraclavicular node. There was evidence of extensive axillary adenopathy, bilateral axillary adenopathy, retrocaval and pretracheal adenopathy and bilateral hilar node with evidence of splenomegaly and it was felt the finding is consistent with disease progression. The patient recently met with the team at [facility] in [place] to consider salvage therapy. However, she came into the hospital today because of feeling progressively fatigued and tired. Her initial evaluation in the emergency department revealed hemoglobin of 3.5, a platelet count down to 40, and WBC are 4.5. The patient as stated she is being admitted to the hospital and she is started on blood transfusion. Her stool for occult blood was negative and her PT, PTT were normal. The patient has had some night sweats. Overall fatigue and tired. No appetite. Lost weight. She has sore sores in her mouth. She denies any fever, any melena, hematochezia, or hematemesis. No nausea or vomiting. PAST MEDICAL HISTORY: As stated above she has diagnosis of angioimmunoblastic T-cell lymphoma, otherwise negative. SOCIAL HISTORY: No history of smoking, alcohol abuse or substance abuse. FAMILY HISTORY: Her mother has had cancer of the cervix. REVIEW OF SYSTEMS: As stated above in history of present illness. ALLERGIES: SHE IS ALLERGIC TO HONEY BEE AND IODINE. CURRENT MEDICATION: Reviewed in her electronic medical record. PHYSICAL EXAMINATION: She is alert and x3. She does appear to be in acute distress. Well developed, well nourished. VITAL SIGNS: Temperature 98.9, afebrile, pulse 102 regular, respiration 18, blood pressure 92/50. HEENT: Normocephalic, atraumatic. No obvious icterus, however, she has petechiae in her oral mucosa and sore on her lip in the left corner of her lower lip. LYMPHATICS: she has she has shotty bilateral cervical adenopathy and also she has bilateral axillary node and with largest lymph node noted under the left axilla. NECK: Supple. No jugular venous distention. Chest equal expansion bilaterally. Lungs revealed decreased breath sounds left base. ABDOMEN: Soft. The spleen is enlarged and palpable below the costal margin. No obvious ascites or organomegaly. No tenderness. Bowel sounds present. EXTREMITIES: No edema. Skin reveals multiple bruises on her extremities. Musculoskeletal: Moving all extremities appropriately. No percussion tenderness. Negative spine sternum. RECENT LABORATORY DATA: WBC of 4.5, hemoglobin 3.5, hematocrit 10.3, platelets are 40. IMPRESSION: 1. Angio immunoplastic T-cell lymphoma. The patient has clinical and radiographic evidence highly suggestive of disease progression. She failed autologous stem cell transplantation. 2. Anemia and thrombocytopenia, likely related to disease progression and bone marrow involvement. However, additional laboratory workup already ordered and results all are pending. RECOMMENDATIONS: 1. I agree with blood transfusion. 2. I did discuss the above impression with the patient and her daughter at bedside with recent PET scan and clinical findings today, highly suggestive of disease progression. 3. Salvage treatment should be highly considered. It could be a combination of the multi chemotherapy regimen or if her lymphoma is CD30 positive, then treatment with brentuximab vedotin would be considered. 4. I will discuss her care with her oncology team and downtown and hopefully could start on systemic treatment in the near future locally. The above was discussed in detail with the patient and daughter at bedside and I have answered all their questions to their satisfaction. Thank you much for asking me to participate in the care of this nice lady. MMODL / IJN: [id number] /
--- NOTE | 2019-09-13 23:37 | P.HPIM ---
History of Present Illness H&P Date: 09/13/19 Chief Complaint: Generalized weakness and fatigue Patient is a 58-year-old female with a known history of T-cell lymphoma, history of bone marrow transplant in November 2018 at [facility] in [place] came to ER with the complaints of generalized weakness and fatigue worsening for the past 1-2 weeks. Patient was was later diagnosed with lymphoma in 2018 and recently had recurrence. Patient also says that she was tested positive for cytomegalovirus at Dr. Rainey's office. Patient was again tested for CMV that Dr. Aguirre's office which was negative otherwise. Patient does have a history of pancytopenia. Patient is currently not on any immunosuppression. Hemoglobin was found to be 3.5 on admission. Platelets 40,000. Patient denied any complaints of fever or chills. No cough or sputum production. No dysuria or hematuria. No nausea vomiting or diarrhea. No leg swelling. FOBT negative. Chest x-ray showed no acute cardio pulmonary process. Review of Systems Constitutional: Patient denies any fever or chills . Eyes weakness and fatigue. Abdomen: Patient denied nausea vomiting and diarrhea and abdominal pain. Cardiovascular: Patient denies any chest pain or short of breath no palpitations. Respiratory: patient denied any cough is from production. No shortness of breath Neurologic: Patient denied any numbness or tingling headache. Musculoskeletal: Patient denies any complaints of joint swelling or deformity. Skin: Negative Psychiatric: Negative Endocrine: No heat or cold intolerance. No recent weight gain. Genitourinary: No dysuria or hematuria. All other 14 point ROS negative except the above Past Medical History Past Medical History: Cancer Additional Past Medical History / Comment(s): LYMPHOMA 2018. GENERALIZED BODY RASH-LYMPHOCYTIC DERMATITIS History of Any Multi-Drug Resistant Organisms: None Reported Additional Past Surgical History / Comment(s): c- section x2, ectopic surgery, D&C, EEXCISION LT INGUINAL LYMPH NODE WITH BIOPSY AND BX LT THIGH RASH, bone marrow bx 06/11/18 Past Anesthesia/Blood Transfusion Reactions: No Reported Reaction Past Psychological History: No Psychological Hx Reported Smoking Status: Never smoker Past Alcohol Use History: None Reported Past Drug Use History: None Reported - Past Family History Mother Family Medical History: Cancer Additional Family Medical History / Comment(s): cervical Medications and Allergies Home Medications Medication Instructions Recorded Confirmed Type Allopurinol [Zyloprim] 100 mg PO DAILY 09/03/19 09/13/19 History Ascorbic Acid [Vitamin C] 500 mg PO DAILY 09/13/19 09/13/19 History Cholecalciferol [Vitamin D3] 400 unit PO DAILY 09/13/19 09/13/19 History HYDROcodone/APAP 5-325MG [[place] 1 tab PO Q6H PRN 09/13/19 09/13/19 History 5-325] methylPREDNISolone Dose Pack See Taper PO DAILY 09/13/19 09/13/19 History [Medrol Dose Pack] Allergies Allergy/AdvReac Type Severity Reaction Status Date / Time bee venom protein (honey bee) Allergy Anaphylaxis Verified 09/13/19 12:25 iodine Allergy Rash/Hives Verified 09/13/19 12:25 Physical Exam Vitals: Vital Signs Temp Pulse Pulse Resp BP BP Pulse Ox 09/13/19 16:05 98.9 F 102 H 18 92/50 09/13/19 16:00 111 H 18 09/13/19 15:58 98.6 F 108 H 18 87/47 09/13/19 15:55 99.5 F 111 H 20 93/54 99 09/13/19 15:35 100.1 F H 106 H 18 101/50 09/13/19 15:25 98.6 F 103 H 18 102/49 09/13/19 14:33 100 18 100/56 98 09/13/19 14:00 101 H 18 96/45 98 09/13/19 13:20 99 18 97/42 100 09/13/19 12:27 102 H 18 115/56 98 09/13/19 11:27 98 18 114/98 100 09/13/19 10:24 98.7 F 93 19 92/49 97 Intake and Output 09/13/19 09/13/19 09/13/19 06:59 14:59 22:59 Intake Total 0 Balance 0 Intake: Blood Product 0 Rc Irr As1 Unit 0 [id number] Other: Weight 58.967 kg PHYSICAL EXAMINATION: Patient is lying in the bed comfortably, no acute distress, awake alert and oriented.. HEENT: Normocephalic. Neck is supple. Pupils reactive. Nostrils clear. Oral cavity is moist. Ears reveal no drainage. Neck reveals no JVD, carotid bruits, or thyromegaly. CHEST EXAMINATION: Trachea is central. Symmetrical expansion. Lung yadav clear to auscultation and percussion. CARDIAC: Normal S1, S2 with no gallops. No murmurs ABDOMEN: Soft. Bowel sounds normal. No organomegaly. No abdominal bruits. Extremities: reveal no edema. No clubbing or cyanosis Neurologically awake, alert, oriented x3 with well-coordinated movements. No focal deficits noted Skin: No rash or skin lesions. Psychiatric: Coperative. Nonsuicidal Musculoskeletal: No joint swelling or deformity. Normal range of motion. Results CBC & Chem 7: 09/13/19 11:40 09/13/19 11:40 Labs: Abnormal Lab Results - Last 24 Hours (Table) 09/13/19 09/13/19 09/13/19 Range/Units 11:40 11:40 11:40 RBC 1.20 L (3.80-5.40) m/uL Hgb 3.5 L* (11.4-16.0) gm/dL Hct 10.3 L* (34.0-46.0) % RDW 17.5 H (11.5-15.5) % Plt Count 40 L (150-450) k/uL PT (9.0-12.0) sec INR (<1.2) APTT (22.0-30.0) sec Sodium 132 L (137-145) mmol/L BUN 34 H (7-17) mg/dL Glucose 117 H (74-99) mg/dL Plasma Lactic Acid Ralph 2.7 H* (0.7-2.0) mmol/L Iron (50-170) ug/dL % Saturation (12.00-45.00) Lactate Dehydrogenase (313-618) U/L Total Protein 6.2 L (6.3-8.2) g/dL Albumin 3.4 L (3.5-5.0) g/dL Free T3 pg/mL 1.5 L (2.8-5.3) pg/ml Crossmatch 09/13/19 09/13/19 09/13/19 Range/Units 11:40 11:40 13:00 RBC (3.80-5.40) m/uL Hgb (11.4-16.0) gm/dL Hct (34.0-46.0) % RDW (11.5-15.5) % Plt Count (150-450) k/uL PT 12.2 H (9.0-12.0) sec INR 1.2 H (<1.2) APTT 20.2 L (22.0-30.0) sec Sodium (137-145) mmol/L BUN (7-17) mg/dL Glucose (74-99) mg/dL Plasma Lactic Acid Ralph (0.7-2.0) mmol/L Iron 274 H (50-170) ug/dL % Saturation 89.84 H (12.00-45.00) Lactate Dehydrogenase 1345 H (313-618) U/L Total Protein (6.3-8.2) g/dL Albumin (3.5-5.0) g/dL Free T3 pg/mL (2.8-5.3) pg/ml Crossmatch See Detail Thrombosis Risk Factor Assmnt - DVT/VTE Prophylaxis DVT/VTE Prophylaxis: Mechanical Prophylaxis ordered - Choose All That Apply Each Factor Represents 1 point: Age 41-60 years Each Risk Factor Represents 2 Points: Malignancy Thrombosis Risk Factor Assessment Total Risk Factor Score: 3 Thrombosis Risk Factor Assessment Level: Moderate Risk Assessment and Plan Assessment: Generalized weakness and fatigue secondary to symptomatic anemia Anemia and thrombocytopenia secondary to disease progression of T-cell lymphoma T-cell lymphoma with history of bone marrow transplant in November 2018. Disease progression as per recent imaging pET studies. History of CMV serology positive. Generally self-limiting. Oral sores. DVT prophylaxis with SCDs Plan: Patient be continued on blood transfusion and monitor fluid status. Follow-up H&H. No active bleeding at this time. Monitor platelet count. Patient was seen by oncology And is considering salvage treatment. Final plan regarding chemotherapy once discussed with her oncologist in at [place]. Prognosis is guarded. Further recommendations based on the clinical course. Time with Patient: Greater than 30
[2019-09-14 02:57] LABS: MCHC 34.9 g/dL (31.0-37.0); MCV 85.9 fL (80.0-100.0); Mean Platelet Volume 10.4; Poikilocytosis Slight; RBC 1.69 m/uL (3.80-5.40); RDW 15.3 % (11.5-15.5)
[2019-09-14 03:00] LABS: Platelet Count 34 k/uL (150-450)
[2019-09-14 03:01] LABS: ALT 20 U/L (9-52); AST 30 U/L (14-36); African American GFR (CKD) >90 (>60 ml/min/1.73 sqM); Albumin 2.8 g/dL (3.5-5.0); Alkaline Phosphatase 50 U/L (38-126); Anion Gap 5 mmol/L; Blood Urea Nitrogen 27 mg/dL (7-17); Carbon Dioxide 25 mmol/L (22-30); Chloride 102 mmol/L (98-107); Glucose 108 mg/dL (74-99); HGB 5.1 gm/dL (11.4-16.0); Non-African American GFR(CKD) 81 (>60 ml/min/1.73 sqM); Potassium 4.3 mmol/L (3.5-5.1); Sodium 132 mmol/L (137-145); Total Bilirubin 1.4 mg/dL (0.2-1.3); Total Protein 5.4 g/dL (6.3-8.2)
[2019-09-14 03:02] LABS: HCT 14.5 % (34.0-46.0)
[2019-09-14] MEDS ORDERED: FUROSEMIDE 10 MG/ML 2 ML VIAL IV ONE (03:16)
[2019-09-14 03:37] LABS: Monocytes # (M) 0.48 k/uL (0-1.0); Neutrophils # (M) 1.62 k/uL (1.3-7.7); Neutrophils % (M) 27 %; Nucleated Red Blood Cells 0 /100 WBC (0-0); Total Cells Counted 100
[2019-09-14] MEDS: ASCORBIC ACID 500 MG TAB PO SCH (08:07)
[2019-09-14] MEDS: CHOLECALCIFEROL 400 UNIT TAB PO SCH (08:07)
[2019-09-14] MEDS: ALLOPURINOL 100 MG TAB PO SCH (08:07)
[2019-09-14] MEDS: HYDROcodone/APAP 5-325MG 1 EACH TAB PO PRN ×2 (08:08→19:41)
[2019-09-14] MEDS: PANTOPRAZOLE 40 MG/10 ML VIAL IV SCH (08:08)
[2019-09-14] MEDS: LIDOCAINE VISCOUS 2% 15 ML CUP MUCOUS MEM PRN ×3 (09:46→22:05)
[2019-09-14 14:16] LABS: HCT 21.3 % (34.0-46.0); MCH 29.1 pg (25.0-35.0); MCHC 33.4 g/dL (31.0-37.0); MCV 87.1 fL (80.0-100.0); Mean Platelet Volume 9.6; RBC 2.45 m/uL (3.80-5.40); RDW 14.6 % (11.5-15.5)
[2019-09-14 14:18] LABS: HGB 7.1 gm/dL (11.4-16.0); Platelet Count 28 k/uL (150-450)
[2019-09-14] MEDS: NYSTATIN 100,000 UNIT/ML SUSP 500,000 UNIT/5 ML CUP PO SCH ×2 (16:55→22:05)
[2019-09-14] MEDS: SODIUM CHLORIDE 0.9% 1,000 ML IV SCH (16:58)
--- NOTE | 2019-09-14 22:51 | P.CONS ---
History of Present Illness - Reason for Consult Consult date: 09/14/19 Questionable CMV infection Requesting physician: Julian Pereira - Chief Complaint Generalized weakness , oral sores x times few days - History of Present Illness Patient is a 58 year old female with a past medical history significant for angioimmunoblastic T-cell lymphoma for the patient had been treated with chemotherapy followed by bone marrow transplant recently noticed to have recurrence of her disease on the basis of multiple lymphadenopathy and a positive PET scan in and apparently the patient was scheduled to be seen by: [facility] [place] for consideration of salvage chemotherapy, however the patient presented to [facility] with the chief complaints of generalized weakness and no energy and fatigue with his symptom has been going on for the last few days patient also complaining of multiple sores in her mouth for last week or so which are painful more of a sharp pain and burning and difficulty swallowing the patient has use Orajel and different modalities without any improvement currently the patient has been diagnosed with a CMV by her primary care physician for a blood test and the patient mentioned to the ER physician which she needs to be treated for the CMV that prompted this infection disease consultation patient missed menstrual period oral sores and generalized weakness but no high-grade fever denies having any chest pain or shortness of breath. Cough no nausea no vomiting no abdominal pain no diarrhea and no urinary symptoms on presentation to the hospital patient is afebrile and remains to be afebrile her white count is normal and she was noticed to have a hemoglobin of 5.1 status post the transfusion Review of Systems Positive point has been mentioned in the HPI rest of the systems are negative Past Medical History Past Medical History: Cancer Additional Past Medical History / Comment(s): LYMPHOMA 2018. GENERALIZED BODY RASH-LYMPHOCYTIC DERMATITIS History of Any Multi-Drug Resistant Organisms: None Reported Additional Past Surgical History / Comment(s): c- section x2, ectopic surgery, D&C, EEXCISION LT INGUINAL LYMPH NODE WITH BIOPSY AND BX LT THIGH RASH, bone marrow bx 06/11/18 Past Anesthesia/Blood Transfusion Reactions: No Reported Reaction Past Psychological History: No Psychological Hx Reported Smoking Status: Never smoker Past Alcohol Use History: None Reported Past Drug Use History: None Reported - Past Family History Mother Family Medical History: Cancer Additional Family Medical History / Comment(s): cervical Medications and Allergies Home Medications Medication Instructions Recorded Confirmed Type Allopurinol [Zyloprim] 100 mg PO DAILY 09/03/19 09/13/19 History Ascorbic Acid [Vitamin C] 500 mg PO DAILY 09/13/19 09/13/19 History Cholecalciferol [Vitamin D3] 400 unit PO DAILY 09/13/19 09/13/19 History HYDROcodone/APAP 5-325MG [[place] 1 tab PO Q6H PRN 09/13/19 09/13/19 History 5-325] methylPREDNISolone Dose Pack See Taper PO DAILY 09/13/19 09/13/19 History [Medrol Dose Pack] Allergies Allergy/AdvReac Type Severity Reaction Status Date / Time bee venom protein (honey bee) Allergy Anaphylaxis Verified 09/13/19 12:25 iodine Allergy Rash/Hives Verified 09/13/19 12:25 Physical Exam Vitals: Vital Signs Temp Pulse Pulse Resp BP BP Pulse Ox 09/14/19 13:34 98.8 F 80 18 97/55 09/14/19 10:20 98.9 F 83 16 101/53 98 09/14/19 09:50 97.9 F 86 16 95/54 09/14/19 09:40 98.3 F 86 96/52 96 09/14/19 06:37 98.9 F 88 16 99/55 94 L 09/14/19 04:25 98.5 F 87 18 95/53 96 09/14/19 04:00 99 16 09/14/19 03:55 98.9 F 86 16 93/50 94 L 09/14/19 03:45 99.0 F 90 16 99/52 95 09/14/19 00:00 98.9 F 99 18 99/60 97 09/13/19 22:08 99.2 F 90 18 88/64 94 L 09/13/19 20:36 99.1 F 93 18 85/60 94 L 09/13/19 20:06 99.5 F 94 18 84/58 96 09/13/19 20:00 99.2 F 95 18 83/54 94 L 09/13/19 19:56 99.2 F 95 18 83/54 93 L 09/13/19 18:47 99.1 F 96 20 90/39 09/13/19 16:05 98.9 F 102 H 18 92/50 09/13/19 16:00 111 H 18 09/13/19 15:58 98.6 F 108 H 18 87/47 09/13/19 15:55 99.5 F 111 H 20 93/54 99 09/13/19 15:35 100.1 F H 106 H 18 101/50 09/13/19 15:25 98.6 F 103 H 18 102/49 09/13/19 14:33 100 18 100/56 98 Intake and Output 09/13/19 09/14/19 09/14/19 22:59 06:59 14:59 Intake Total 620 790 990 Output Total 450 Balance 620 340 990 Intake: Oral 480 680 Blood Product 620 310 310 Rc Irr As1 Unit 310 [id number] Rc Irr As1 Unit 310 [id number] Rc Irr As1 Unit 310 [id number] Rc Irr As1 Unit 310 [id number] Output: Urine 450 Other: Voiding Method Bedside Commode Bedside Commode # Voids 1 1 Weight 52.1 kg GENERAL DESCRIPTION: Middle-aged female lying in bed, no distress. No tachypnea or accessory muscle of respiration use. HEENT: Shows Pallor , no scleral icterus. Oral mucous membrane is dry. No pharyngeal erythema or thrush, patient did have multiple superficial aphthous ulcer in her mouth NECK: Trachea central, no thyromegaly. LUNGS: Unlabored breathing. Clear to auscultation anteriorly. No wheeze or crackle. HEART: S1, S2, regular rate and rhythm. No loud murmur ABDOMEN: Soft, no tenderness , guarding or rigidity, no organomegaly EXTREMITIES: No edema of feet. SKIN: No rash, no masses palpable. NEUROLOGICAL: The patient is awake, alert, oriented x3, mood and affect normal. Results CBC & Chem 7: 09/14/19 14:03 09/14/19 02:35 Labs: Abnormal Lab Results - Last 24 Hours (Table) 09/13/19 09/13/19 09/14/19 Range/Units 11:40 13:00 02:35 RBC (3.80-5.40) m/uL Hgb (11.4-16.0) gm/dL Hct (34.0-46.0) % Plt Count (150-450) k/uL Sodium 132 L (137-145) mmol/L BUN 27 H (7-17) mg/dL Glucose 108 H (74-99) mg/dL Calcium 8.0 L (8.4-10.2) mg/dL Iron 274 H (50-170) ug/dL % Saturation 89.84 H (12.00-45.00) Total Bilirubin 1.4 H (0.2-1.3) mg/dL Lactate Dehydrogenase 1345 H (313-618) U/L Total Protein 5.4 L (6.3-8.2) g/dL Albumin 2.8 L (3.5-5.0) g/dL Crossmatch See Detail 09/14/19 Range/Units 02:35 RBC 1.69 L (3.80-5.40) m/uL Hgb 5.1 L* D (11.4-16.0) gm/dL Hct 14.5 L* (34.0-46.0) % Plt Count 34 L (150-450) k/uL Sodium (137-145) mmol/L BUN (7-17) mg/dL Glucose (74-99) mg/dL Calcium (8.4-10.2) mg/dL Iron (50-170) ug/dL % Saturation (12.00-45.00) Total Bilirubin (0.2-1.3) mg/dL Lactate Dehydrogenase (313-618) U/L Total Protein (6.3-8.2) g/dL Albumin (3.5-5.0) g/dL Crossmatch Assessment and Plan Assessment: 1-patient presented to the hospital with generalized weakness in this patient noticed to have a hemoglobin of 5.1 and recent diagnosis of recurrence of underlying T-cell lymphoma more likely responsible for her symptoms clinically doubt CMV responsible for her symptoms 2-patient and her multiple aphthous ulcers in her mouth more likely secondary to underlying T-cell lymphoma with clinical suspicion is low for secondary bacterial or fungal infection (1) Canker sores oral Current Visit: Yes Status: Acute Code(s): K12.0 - RECURRENT ORAL APHTHAE SNOMED Code(s): 614888275 Plan: 1-we will obtain CMV IgM IgG antibodies and PP 65 antigen 2-therapeutic trial of nystatin swish and swallow for oral ulcers 3-IV fluids We will follow on clinical condition and cultures to further adjust medication if needed Thank you for this consultation will follow this patient with you Time with Patient: Greater than 30
--- NOTE | 2019-09-15 01:16 | P.PN ---
Subjective Progress Note Date: 09/14/19 Principal diagnosis: Generalized weakness and fatigue. Symptomatic anemia Patient is a 58-year-old female with a known history of T-cell lymphoma, history of bone marrow transplant in November 2018 at [facility] in [place] came to ER with the complaints of generalized weakness and fatigue worsening for the past 1-2 weeks. Patient was was later diagnosed with lymphoma in 2018 and recently had recurrence. Patient also says that she was tested positive for cytomegalovirus at Dr. Rainey's office. Patient was again tested for CMV that Dr. Aguirre's office which was negative otherwise. Patient does have a history of pancytopenia. Patient is currently not on any immunosuppression. Hemoglobin was found to be 3.5 on admission. Platelets 40,000. Patient denied any complaints of fever or chills. No cough or sputum production. No dysuria or hematuria. No nausea vomiting or diarrhea. No leg swelling. FOBT negative. Chest x-ray showed no acute cardio pulmonary process. 09/14/2019 Patient says that her weakness and fatigue is better. She feels better compared to yesterday. Hemoglobin level improved to 5.1 from 3.5 with 2 units of PRBC transfusion. Patient will be given 1 unit of PRBC. Patient was shortness of breath last night and was given 1 dose of IV Lasix. Currently breathing status is better. Continue to monitor respiratory status. Patient has been afebrile. No cough or sputum production. ID was consulted due to recent CMV serology positive at PCPs office... Oncology is on board. Plan for salvage chemo therapy. Active Medications Acetaminophen (Tylenol Tab) 650 mg PO Q6HR PRN PRN Reason: Mild Pain or Fever > 100.5 Last Admin: 09/13/19 15:42 Dose: 650 mg Documented by: Hydrocodone Bitart/Acetaminophen ([place] 5-325) 1 each PO Q6H PRN PRN Reason: Pain Last Admin: 09/14/19 19:41 Dose: 1 each Documented by: Allopurinol (Zyloprim) 100 mg PO DAILY [facility] Last Admin: 09/14/19 08:07 Dose: 100 mg Documented by: Ascorbic Acid (Vitamin C) 500 mg PO DAILY [facility] Last Admin: 09/14/19 08:07 Dose: 500 mg Documented by: Cholecalciferol (Vitamin D3) 400 unit PO DAILY [facility] Last Admin: 09/14/19 08:07 Dose: 400 unit Documented by: Sodium Chloride (Saline 0.9%) 1,000 mls @ 20 mls/hr IV .Q24H [facility] Last Admin: 09/14/19 16:58 Dose: Not Given Documented by: Lidocaine HCl (Xylocaine Viscous) 5 ml MUCOUS MEM Q8HR PRN PRN Reason: Mouth Sore Pain Last Admin: 09/14/19 22:05 Dose: 5 ml Documented by: Naloxone HCl (Narcan) 0.2 mg IV Q2M PRN PRN Reason: Opioid Reversal Nystatin (Mycostatin Oral Susp) 500,000 unit PO QID [facility] Last Admin: 09/14/19 22:05 Dose: 500,000 unit Documented by: Ondansetron HCl (Zofran) 4 mg IVP Q8HR PRN PRN Reason: Nausea And Vomiting Pantoprazole Sodium (Protonix) 40 mg IV DAILY [facility] Last Admin: 09/14/19 08:08 Dose: 40 mg Documented by: Objective - Vital Signs Vital signs: Vital Signs Temp 99.8 F H 09/14/19 20:00 Pulse 90 09/14/19 20:00 Resp 20 09/14/19 20:00 BP 114/57 09/14/19 20:00 Pulse Ox 95 09/14/19 20:00 Intake & Output 09/14/19 09/14/19 09/15/19 06:59 18:59 06:59 Intake Total 1100 1350 Output Total 450 Balance 650 1350 Weight 52.1 kg Intake: Oral 480 1040 Blood Product 620 310 Rc Irr As1 Unit 310 [id number] Rc Irr As1 Unit 310 [id number] Rc Irr As1 Unit 310 [id number] Output: Urine 450 Other: Voiding Method Bedside Commode # Voids 1 - Exam Patient is lying in the bed comfortably, no acute distress, awake alert and oriented.. HEENT: Normocephalic. Neck is supple. Pupils reactive. Nostrils clear. Oral cavity is moist. Ears reveal no drainage. Neck reveals no JVD, carotid bruits, or thyromegaly. CHEST EXAMINATION: Trachea is central. Symmetrical expansion. Lung yadav clear to auscultation and percussion. CARDIAC: Normal S1, S2 with no gallops. No murmurs ABDOMEN: Soft. Bowel sounds normal. No organomegaly. No abdominal bruits. Extremities: reveal no edema. No clubbing or cyanosis Neurologically awake, alert, oriented x3 with well-coordinated movements. No focal deficits noted Skin: No rash or skin lesions. Psychiatric: Coperative. Nonsuicidal Musculoskeletal: No joint swelling or deformity. Normal range of motion. - Labs CBC & Chem 7: 09/14/19 14:03 09/14/19 02:35 Labs: Abnormal Lab Results - Last 24 Hours (Table) 09/13/19 09/14/19 09/14/19 Range/Units 13:00 02:35 02:35 RBC 1.69 L (3.80-5.40) m/uL Hgb 5.1 L* D (11.4-16.0) gm/dL Hct 14.5 L* (34.0-46.0) % Plt Count 34 L (150-450) k/uL Sodium 132 L (137-145) mmol/L BUN 27 H (7-17) mg/dL Glucose 108 H (74-99) mg/dL Calcium 8.0 L (8.4-10.2) mg/dL Total Bilirubin 1.4 H (0.2-1.3) mg/dL Total Protein 5.4 L (6.3-8.2) g/dL Albumin 2.8 L (3.5-5.0) g/dL Crossmatch See Detail 09/14/19 Range/Units 14:03 RBC 2.45 L (3.80-5.40) m/uL Hgb 7.1 L D (11.4-16.0) gm/dL Hct 21.3 L (34.0-46.0) % Plt Count 28 L (150-450) k/uL Sodium (137-145) mmol/L BUN (7-17) mg/dL Glucose (74-99) mg/dL Calcium (8.4-10.2) mg/dL Total Bilirubin (0.2-1.3) mg/dL Total Protein (6.3-8.2) g/dL Albumin (3.5-5.0) g/dL Crossmatch Assessment and Plan Assessment: Generalized weakness and fatigue secondary to symptomatic anemia. Hemoglobin improved from 3.5-5.1 year status post 2 units of PRBC transfusion. 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 Disea se progression as per recent imaging pET studies. History of CMV serology positive. Generally self-limiting. Oral sores. DVT prophylaxis with SCDs Plan: Patient be continued on blood transfusion and monitor fluid status. Follow-up H&H. No active bleeding at this time. Monitor platelet count. Patient was seen by oncology And is considering salvage treatment. Final plan regarding chemotherapy once discussed with her oncologist in at [place]. Prognosis is guarded. Further recommendations based on the clinical course. Time with Patient: Greater than 30
[2019-09-15] MEDS: LIDOCAINE VISCOUS 2% 15 ML CUP MUCOUS MEM PRN ×2 (05:52→18:23)
[2019-09-15] MEDS: HYDROcodone/APAP 5-325MG 1 EACH TAB PO PRN ×3 (05:52→20:25)
[2019-09-15] MEDS: NYSTATIN 100,000 UNIT/ML SUSP 500,000 UNIT/5 ML CUP PO SCH ×4 (06:43→20:25)
[2019-09-15 08:08] LABS: African American GFR (CKD) >90 (>60 ml/min/1.73 sqM); Anion Gap 6 mmol/L; Blood Urea Nitrogen 21 mg/dL (7-17); Calcium 8.1 mg/dL (8.4-10.2); Carbon Dioxide 25 mmol/L (22-30); Chloride 101 mmol/L (98-107); Glucose 103 mg/dL (74-99); Non-African American GFR(CKD) >90 (>60 ml/min/1.73 sqM); Potassium 4.1 mmol/L (3.5-5.1); Sodium 132 mmol/L (137-145)
[2019-09-15 08:16] LABS: MCH 29.5 pg (25.0-35.0); MCHC 34.5 g/dL (31.0-37.0); MCV 85.3 fL (80.0-100.0); Mean Platelet Volume 10.7; RBC 2.26 m/uL (3.80-5.40); RDW 14.6 % (11.5-15.5); WBC 3.8 k/uL (3.8-10.6)
[2019-09-15 08:23] LABS: HCT 19.2 % (34.0-46.0); HGB 6.6 gm/dL (11.4-16.0)
[2019-09-15 08:50] LABS: Eosinophils # (M) 0.04 k/uL (0-0.7); Lymphocytes # (M) 1.94 k/uL (1.0-4.8); Monocytes # (M) 0.42 k/uL (0-1.0); Neutrophils # (M) 1.41 k/uL (1.3-7.7); Neutrophils % (M) 37 %; Nucleated Red Blood Cells 0 /100 WBC (0-0); Poikilocytosis (M) Present; Total Cells Counted 100
[2019-09-15 08:51] LABS: Platelet Count 24 k/uL (150-450)
[2019-09-15] MEDS: ALLOPURINOL 100 MG TAB PO SCH (08:52)
[2019-09-15] MEDS: PANTOPRAZOLE 40 MG/10 ML VIAL IV SCH (08:52)
[2019-09-15] MEDS: CHOLECALCIFEROL 400 UNIT TAB PO SCH (08:52)
[2019-09-15] MEDS: ASCORBIC ACID 500 MG TAB PO SCH (08:52)
--- NOTE | 2019-09-15 10:49 | P.PN ---
Subjective Patient is a 58-year-old female with a known history of T-cell lymphoma, history of bone marrow transplant in November [address] [facility] in [place] came to ER with the complaints of generalized weakness and fatigue worsening for the past 1-2 weeks. Patient was was later diagnosed with lymphoma in 2018 and recently had recurrence. Patient also says that she was tested positive for cytomegalovirus at Dr. Rainey's office. Patient was again tested for CMV that Dr. Aguirre's office which was negative otherwise. Patient does have a history of pancytopenia. Patient is currently not on any immunosuppression. Hemoglobin was found to be 3.5 on admission. Platelets 40,000. Patient denied any complaints of fever or chills. No cough or sputum production. No dysuria or hematuria. No nausea vomiting or diarrhea. No leg swelling. FOBT negative. Chest x-ray showed no acute cardio pulmonary process. 09/14/2019 Patient says that her weakness and fatigue is better. She feels better compared to yesterday. Hemoglobin level improved to 5.1 from 3.5 with 2 units of PRBC transfusion. Patient will be given 1 unit of PRBC. Patient was shortness of breath last night and was given 1 dose of IV Lasix. Currently breathing status is better. Continue to monitor respiratory status. Patient has been afebrile. No cough or sputum production. ID was consulted due to recent CMV serology positive at PCPs office... Oncology is on board. Plan for salvage chemo therapy. 09/15/2019 Patient presents with generalized weakness related to anemia, and simple, hemoglobin 6.6 months she's getting 1 unit of blood transfusion today. She has low hemoglobin and low platelets secondary to bone marrow involvement from her T-cell lymphoma bone marrow transplant on 11/2018. Oncology team R following the case closely and they will decide whether to start chemotherapy after discussing the case with her shelving supervisor at the [facility] at [place]. Continue with lidocaine viscous for mouth sores. Also recommended nystatin/and swallow. She had low-grade temperature, 90 team R following the case and they have no recommendation for more antibiotics for now. Patient is lying in the bed comfortably, no acute distress, awake alert and oriented.. HEENT: Normocephalic. Neck is supple. Pupils reactive. Nostrils clear. Oral cavity is moist. Ears reveal no drainage. Neck reveals no JVD, carotid bruits, or thyromegaly. CHEST EXAMINATION: Trachea is central. Symmetrical expansion. Lung yadav clear to auscultation and percussion. CARDIAC: Normal S1, S2 with no gallops. No murmurs ABDOMEN: Soft. Bowel sounds normal. No organomegaly. No abdominal bruits. Extremities: reveal no edema. No clubbing or cyanosis Neurologically awake, alert, oriented x3 with well-coordinated movements. No focal deficits noted Skin: No rash or skin lesions. Psychiatric: Coperative. Nonsuicidal Musculoskeletal: No joint swelling or deformity. Normal range of motion. Active Medications Generic Name Dose Route Start Last Admin Trade Name Freq PRN Reason Stop Dose Admin Acetaminophen 650 mg 09/13/19 12:49 09/13/19 15:42 Tylenol Tab PO 650 mg Q6HR PRN Administration Mild Pain or Fever > 100.5 Hydrocodone Bitart/Acetaminophen 1 each 09/13/19 12:53 09/15/19 05:52 [place] 5-325 PO 1 each Q6H PRN Administration Pain Allopurinol 100 mg 09/14/19 09:00 09/15/19 08:52 Zyloprim PO 100 mg DAILY KEE Administration Ascorbic Acid 500 mg 09/14/19 09:00 09/15/19 08:52 Vitamin C PO 500 mg DAILY KEE Administration Cholecalciferol 400 unit 09/14/19 09:00 09/15/19 08:52 Vitamin D3 PO 400 unit DAILY KEE Administration Sodium Chloride 1,000 mls @ 20 mls/hr 09/13/19 13:00 09/14/19 16:58 Saline 0.9% IV Not Given .Q24H KEE Lidocaine HCl 5 ml 09/13/19 17:29 09/15/19 05:52 Xylocaine Viscous MUCOUS MEM 5 ml Q8HR PRN Administration Mouth Sore Pain Naloxone HCl 0.2 mg 09/13/19 12:49 Narcan IV Q2M PRN Opioid Reversal Nystatin 500,000 unit 09/14/19 18:00 09/15/19 06:43 Mycostatin Oral Susp PO 500,000 unit QID KEE Administration Ondansetron HCl 4 mg 09/13/19 12:49 Zofran IVP Q8HR PRN Nausea And Vomiting Pantoprazole Sodium 40 mg 09/13/19 13:00 09/15/19 08:52 Protonix IV 40 mg DAILY KEE Administration Objective - Vital Signs Vital signs: Vital Signs Temp 97.9 F 09/15/19 08:00 Pulse 86 09/15/19 08:00 Resp 16 09/15/19 08:00 BP 89/48 09/15/19 08:00 Pulse Ox 97 09/15/19 08:00 Intake & Output 09/14/19 09/15/19 09/15/19 18:59 06:59 18:59 Intake Total 1350 240 Balance 1350 240 Weight 49.8 kg Intake: Oral 1040 240 Blood Product 310 Rc Irr As1 Unit 310 [id number] Other: Voiding Method Bedside Commode # Voids 1 1 - Labs CBC & Chem 7: 09/15/19 07:33 09/15/19 07:33 Labs: Abnormal Lab Results - Last 24 Hours (Table) 09/13/19 09/14/19 09/15/19 Range/Units 13:00 14:03 07:33 RBC 2.45 L 2.26 L (3.80-5.40) m/uL Hgb 7.1 L D 6.6 L* (11.4-16.0) gm/dL Hct 21.3 L 19.2 L* (34.0-46.0) % Plt Count 28 L 24 L (150-450) k/uL Sodium (137-145) mmol/L BUN (7-17) mg/dL Glucose (74-99) mg/dL Calcium (8.4-10.2) mg/dL Crossmatch See Detail 09/15/19 Range/Units 07:33 RBC (3.80-5.40) m/uL Hgb (11.4-16.0) gm/dL Hct (34.0-46.0) % Plt Count (150-450) k/uL Sodium 132 L (137-145) mmol/L BUN 21 H (7-17) mg/dL Glucose 103 H (74-99) mg/dL Calcium 8.1 L (8.4-10.2) mg/dL Crossmatch Assessment and Plan Assessment: Generalized weakness and fatigue secondary to symptomatic anemia. Hemoglobin improved from 3.5-5.1 year status post 2 units of PRBC transfusion. 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 Disease progression as per recent imaging pET studies. History of CMV serology positive. Generally self-limiting. Oral sores. DVT prophylaxis with SCDs Plan: Patient be continued on blood transfusion and monitor fluid status. Follow-up H&H. No active bleeding at this time. Monitor platelet count. Patient was seen by oncology And is considering salvage treatment. Final plan regarding chemotherapy once discussed with her oncologist in at [place]. ID team following the case closely for fever with CMV workup is pending. Continue with nystatin and vicious lidocaine for her oral ulcers. DVT prophylaxis and GI prophylaxis. No heparin in view of her low hemoglobin and platelet Prognosis is guarded. Further recommendations based on the clinical course.
[2019-09-15] MEDS: SODIUM CHLORIDE 0.9% 1,000 ML IV SCH (11:51)
[2019-09-15] MEDS ORDERED: ACYCLOVIR 200 MG CAP PO SCH (12:15)
--- NOTE | 2019-09-15 12:20 | P.PN ---
Subjective Progress Note Date: 09/15/19 Principal diagnosis: Pancytopenia, recurrent angioimmunoblastic T-cell lymphoma In f/u today pt is feeling weak and tired, having trouble eating due to oral irritation, she has a history of "cold sores", no sore throat, no other areas of irritation, denies nausea, chest pain, she has mild SOB with exertion, no cough, abd pain, dysuria, hematuria, black or bloody stool, denies neuro symptoms. Objective - Vital Signs Vital signs: Vital Signs Temp 98.3 F 09/15/19 11:33 Pulse 84 09/15/19 11:33 Resp 16 09/15/19 11:33 BP 90/51 09/15/19 11:33 Pulse Ox 97 09/15/19 11:33 Intake & Output 09/14/19 09/15/19 09/15/19 18:59 06:59 18:59 Intake Total 1350 540 Balance 1350 540 Weight 49.8 kg Intake: Oral 1040 240 Blood Product 310 300 Rc Irr As1 Unit 310 [id number] Rc Irr As1 Unit 0 [id number] Other: Voiding Method Bedside Commode # Voids 1 1 2 - Constitutional General appearance: Present: average body habitus, cooperative, no acute distress - EENT EENT Comment(s): lower lip is excoriated, multiple areas of redness in the mouth, no thrush Eyes: Present: anicteric sclerae, EOMI ENT: Present: hearing grossly normal - Neck Neck: Present: lymphadenopathy - Respiratory Respiratory: bilateral: CTA - Cardiovascular Rhythm: regular Heart sounds: normal: S1, S2 Abnormal Heart Sounds: Absent: systolic murmur, diastolic murmur, rub, S3 Gallop, S4 Gallop, click, other - Peripheral edema leg Peripheral Edema: bilateral: None - Gastrointestinal General gastrointestinal: Present: normal bowel sounds, soft - Integumentary Integumentary: Present: pale - Neurologic Neurologic: Present: CNII-XII intact - Musculoskeletal Musculoskeletal: Present: generalized weakness, strength equal bilaterally - Psychiatric Psychiatric: Present: A&O x's 3, appropriate affect, intact judgment & insight - Labs CBC & Chem 7: 09/15/19 07:33 09/15/19 07:33 Labs: Abnormal Lab Results - Last 24 Hours (Table) 11/09/13/19 09/14/19 Range/Units 11:40 13:00 14:03 RBC 2.45 L (3.80-5.40) m/uL Hgb 7.1 L D (11.4-16.0) gm/dL Hct 21.3 L (34.0-46.0) % Plt Count 28 L (150-450) k/uL Haptoglobin <8.0 L (31.2-198.0) mg/dL Sodium (137-145) mmol/L BUN (7-17) mg/dL Glucose (74-99) mg/dL Calcium (8.4-10.2) mg/dL Crossmatch See Detail 09/15/19 09/15/19 Range/Units 07:33 07:33 RBC 2.26 L (3.80-5.40) m/uL Hgb 6.6 L* (11.4-16.0) gm/dL Hct 19.2 L* (34.0-46.0) % Plt Count 24 L (150-450) k/uL Haptoglobin (31.2-198.0) mg/dL Sodium 132 L (137-145) mmol/L BUN 21 H (7-17) mg/dL Glucose 103 H (74-99) mg/dL Calcium 8.1 L (8.4-10.2) mg/dL Crossmatch Assessment and Plan (1) Angioimmunoblastic T-cell lymphoma Narrative/Plan: Dr. Aguirre discussed case with Dr. Voss at [facility]. Recommendation for bone marrow-being done tomorrow. CD30 is negative so, bretuximab is not a treatment option. DHAP regimen is likely going to be ordered inpatient. Current Visit: Yes Status: Acute Priority: High Code(s): C86.5 - ANGIOIMMUNOBLASTIC T-CELL LYMPHOMA SNOMED Code(s): 163234710 (2) Pancytopenia Narrative/Plan: Most likely due to disease. Bone marrow biopsy and aspirate planned for tomorrow at noon. Transfuse to keep Hgb 7 or above, unless symptomatic Transfuse to keep Platelets >10,000 No intervention for WBC at this time. Current Visit: Yes Status: Acute Priority: High Code(s): D61.818 - OTHER PANCYTOPENIA SNOMED Code(s): 615904731 (3) Canker sores oral Narrative/Plan: Pt having trouble eating. ID following, pending viral studies and possible initiation of antiviral meds Current Visit: Yes Status: Acute Priority: High Code(s): K12.0 - RECURRENT ORAL APHTHAE SNOMED Code(s): 351674684
--- NOTE | 2019-09-15 17:35 | PN ---
PROGRESS NOTE DATE OF SERVICE: 09/15/2019. REASON FOR FOLLOW UP: 1. Oral sores. 2. Question of CMV. INTERVAL HISTORY: The patient is currently afebrile. Patient is breathing comfortably. The patient is having sores in her mouth and pain associated with it. No nausea, no vomiting. No abdominal pain. No diarrhea. PHYSICAL EXAMINATION: Blood pressure is 101/56, pulse of 80, temperature 98.3. She is 96% room air. General description is a middle-aged female up in the room in no distress. HEENT: Shows oral aphthous ulcer. LUNGS: Unlabored breathing, clear to auscultation. HEART: S1, S2. Regular rate and rhythm. Abdomen soft. No tenderness. LABS: Hemoglobin 6.3, white count 3.9 with a BUN of 21 and creatinine 0.63. CMV IgM and IgG negative. DIAGNOSTIC IMPRESSION AND PLAN: 1. Patient with oral abscess ulcer, could be related to underlying lymphoma. Clinically doubt fungal or viral infection. The patient is on nystatin swish and swallow with plan for possible addition of Valtrex. 2. The patient with question of possible CMV, CMV serology came back negative making it to be likely CMV disease. MMODL / IJN: [id number] /
[2019-09-15 18:53] LABS: Procalcitonin 0.36 ng/mL (0.02-0.09)
[2019-09-15] MEDS: ACETAMINOPHEN TAB 325 MG TAB PO PRN (22:11)
[2019-09-16] MEDS ORDERED: HYDROmorphone 0.5 MG/0.5 ML SYRINGE IVP PRN (06:00)
[2019-09-16] MEDS ORDERED: LIDOCAINE 1% 20 ML VIAL (10MG/ML) FOR IV START INTRADERMA PRN (06:00)
[2019-09-16 07:11] LABS: MCH 29.6 pg (25.0-35.0); MCV 84.5 fL (80.0-100.0); Mean Platelet Volume 10.8; RBC 2.33 m/uL (3.80-5.40); RDW 15.1 % (11.5-15.5); WBC 3.3 k/uL (3.8-10.6)
[2019-09-16 07:28] LABS: HGB 6.9 gm/dL (11.4-16.0)
[2019-09-16 07:29] LABS: HCT 19.7 % (34.0-46.0)
[2019-09-16 07:30] LABS: Platelet Count 21 k/uL (150-450)
[2019-09-16 07:39] LABS: African American GFR (CKD) >90 (>60 ml/min/1.73 sqM); Anion Gap 4 mmol/L; Blood Urea Nitrogen 17 mg/dL (7-17); Calcium 7.8 mg/dL (8.4-10.2); Carbon Dioxide 28 mmol/L (22-30); Chloride 99 mmol/L (98-107); Glucose 100 mg/dL (74-99); Non-African American GFR(CKD) >90 (>60 ml/min/1.73 sqM); Potassium 3.9 mmol/L (3.5-5.1); Sodium 131 mmol/L (137-145)
[2019-09-16 08:45] LABS: Band Neutrophils % 1 %; Eosinophils # (M) 0.07 k/uL (0-0.7); Lymphocytes # (M) 1.42 k/uL (1.0-4.8); Monocytes # (M) 0.13 k/uL (0-1.0); Neutrophils % (M) 50 %; Nucleated Red Blood Cells 0 /100 WBC (0-0); Total Cells Counted 100
[2019-09-16 08:52] LABS: Reticulocyte % 0.5 % (0.5-2.0)
[2019-09-16] MEDS: CHOLECALCIFEROL 400 UNIT TAB PO SCH (09:28)
[2019-09-16] MEDS: ASCORBIC ACID 500 MG TAB PO SCH (09:28)
[2019-09-16] MEDS: ALLOPURINOL 100 MG TAB PO SCH (09:28)
[2019-09-16] MEDS: NYSTATIN 100,000 UNIT/ML SUSP 500,000 UNIT/5 ML CUP PO SCH ×4 (09:28→21:30)
[2019-09-16] MEDS: HYDROcodone/APAP 5-325MG 1 EACH TAB PO PRN ×2 (09:28→21:36)
[2019-09-16] MEDS: LACTATED RINGERS 1,000 ML IV SCH (09:29)
[2019-09-16] MEDS: PANTOPRAZOLE 40 MG/10 ML VIAL IV SCH (09:29)
[2019-09-16] MEDS ORDERED: SALT AND SODA MOUTHWASH 1,000 ML PO PRN (10:14)
--- NOTE | 2019-09-16 10:21 | P.PN ---
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 Patient was was later diagnosed with lymphoma in 2018 and recently had recurrence. Patient also says that she was tested positive for cytomegalovirus at Dr. Rainey's office. Patient was again tested for CMV that Dr. Aguirre's office which was negative otherwise. Patient does have a history of pancytopenia. Patient is currently not on any immunosuppression. Hemoglobin was found to be 3.5 on admission. Platelets 40,000. Patient denied any complaints of fever or chills. No cough or sputum production. No dysuria or hematuria. No nausea vomiting or diarrhea. No leg swelling. FOBT negative. Chest x-ray showed no acute cardio pulmonary process. 09/14/2019 Patient says that her weakness and fatigue is better. She feels better compared to yesterday. Hemoglobin level improved to 5.1 from 3.5 with 2 units of PRBC transfusion. Patient will be given 1 unit of PRBC. Patient was shortness of breath last night and was given 1 dose of IV Lasix. Currently breathing status is better. Continue to monitor respiratory status. Patient has been afebrile. No cough or sputum production. ID was consulted due to recent CMV serology positive at PCPs office... Oncology is on board. Plan for salvage chemo therapy. 09/15/2019 Patient presents with generalized weakness related to anemia, and simple, hemoglobin 6.6 months she's getting 1 unit of blood transfusion today. She has low hemoglobin and low platelets secondary to bone marrow involvement from her T-cell lymphoma bone marrow transplant on 11/2018. Oncology team R following the case closely and they will decide whether to start chemotherapy after discussing the case with her soyfreeze operator at the [place] at [place]. Continue with lidocaine viscous for mouth sores. Also recommended nystatin/and swallow. She had low-grade temperature, 90 team R following the case and they have no recommendation for more antibiotics for now. 09/16/2019 Patient still fatigue, and her main complaint is her of the sores in her mouth which are not responding to therapy with nystatin or lidocaine and patient is willing to try something else. I discussed the case with the pharmacist and restarting her on salt on soda. Patient is a status post one unit of blood transfusion yesterday however her hemoglobin is still on the low side at 6.9. Platelet count still low at 20 1K. No signs of active bleeding and oncology team are planning for bone marrow biopsy today. Sodium is stable at 131, creatinine is normal. Patient is still running fever and infectious disease team are on board following the patient closely. Physical therapy is ordered and is pending. Patient is lying in the bed comfortably, no acute distress, awake alert and oriented.. HEENT: Normocephalic. Neck is supple. Pupils reactive. Nostrils clear. Oral cavi ty is moist. Ears reveal no drainage. Neck reveals no JVD, carotid bruits, or thyromegaly. CHEST EXAMINATION: Trachea is central. Symmetrical expansion. Lung yadav clear to auscultation and percussion. CARDIAC: Normal S1, S2 with no gallops. No murmurs ABDOMEN: Soft. Bowel sounds normal. No organomegaly. No abdominal bruits. Extremities: reveal no edema. No clubbing or cyanosis Neurologically awake, alert, oriented x3 with well-coordinated movements. No focal deficits noted Skin: No rash or skin lesions. Psychiatric: Coperative. Nonsuicidal Musculoskeletal: No joint swelling or deformity. Normal range of motion. Active Medications Generic Name Dose Route Start Last Admin Trade Name Freq PRN Reason Stop Dose Admin Acetaminophen 650 mg 09/13/19 12:49 09/15/19 22:11 Tylenol Tab PO 650 mg Q6HR PRN Administration Mild Pain or Fever > 100.5 Hydrocodone Bitart/Acetaminophen 1 each 09/13/19 12:53 09/16/19 09:28 [place] 5-325 PO 1 each Q6H PRN Administration Pain Allopurinol 100 mg 09/14/19 09:00 09/16/19 09:28 Zyloprim PO 100 mg DAILY KEE Administration Ascorbic Acid 500 mg 09/14/19 09:00 09/16/19 09:28 Vitamin C PO 500 mg DAILY KEE Administration Cholecalciferol 400 unit 09/14/19 09:00 09/16/19 09:28 Vitamin D3 PO 400 unit DAILY KEE Administration Dexamethasone 40 mg 09/16/19 14:00 Hexadrol PO 09/19/19 09:01 DAILY [facility] Sodium Chloride 1,000 mls @ 20 mls/hr 09/13/19 13:00 09/15/19 11:51 Saline 0.9% IV Not Given .Q24H KEE Lactated Ringer's 1,000 mls @ 20 mls/hr 09/16/19 06:00 09/16/19 09:29 Lactated Ringers IV Not Given .Q24H KEE Lidocaine HCl 5 ml 09/13/19 17:29 09/15/19 18:23 Xylocaine Viscous MUCOUS MEM 5 ml Q8HR PRN Administration Mouth Sore Pain Lidocaine HCl 0.1 ml 09/16/19 06:00 .Xylocaine 1% Inj (10mg/Ml) For Iv Start INTRADERMA PER PROTOCOL PRN IV Start Naloxone HCl 0.2 mg 09/13/19 12:49 Narcan IV Q2M PRN Opioid Reversal Nystatin 500,000 unit 09/14/19 18:00 09/16/19 09:28 Mycostatin Oral Susp PO 500,000 unit QID KEE Administration Ondansetron HCl 4 mg 09/13/19 12:49 Zofran IVP Q8HR PRN Nausea And Vomiting Pantoprazole Sodium 40 mg 09/13/19 13:00 09/16/19 09:29 Protonix IV 40 mg DAILY KEE Administration Sodium Bicarbonate 5 ml 09/16/19 11:00 PO 5XD KEE Objective - Vital Signs Vital signs: Vital Signs Temp 100.8 F H 09/16/19 08:00 Pulse 89 09/16/19 08:00 Resp 17 09/16/19 08:00 BP 105/59 09/16/19 08:00 Pulse Ox 97 09/16/19 08:00 Intake & Output 09/15/19 09/16/19 09/16/19 18:59 06:59 18:59 Intake Total 850 Balance 850 Weight 52.7 kg Intake: Oral 240 Blood Product 610 Rc Irr As1 Unit 310 [id number] Other: # Voids 3 - Exam Patient is lying in the bed comfortably, no acute distress, awake alert and oriented.. HEENT: Normocephalic. Neck is supple. Pupils reactive. Nostrils clear. Oral cavity is moist. Ears reveal no drainage. Neck reveals no JVD, carotid bruits, or thyromegaly. CHEST EXAMINATION: Trachea is central. Symmetrical expansion. Lung yadav clear to auscultation and percussion. CARDIAC: Normal S1, S2 with no gallops. No murmurs ABDOMEN: Soft. Bowel sounds normal. No organomegaly. No abdominal bruits. Extremities: reveal no edema. No clubbing or cyanosis Neurologically awake, alert, oriented x3 with well-coordinated movements. No focal deficits noted Skin: No rash or skin lesions. Psychiatric: Coperative. Nonsuicidal Musculoskeletal: No joint swelling or deformity. Normal range of motion. - Labs CBC & Chem 7: 09/16/19 06:08 09/16/19 06:08 Labs: Abnormal Lab Results - Last 24 Hours (Table) 09/13/19 09/13/19 09/15/19 Range/Units 11:40 13:00 07:33 WBC (3.8-10.6) k/uL RBC (3.80-5.40) m/uL Hgb (11.4-16.0) gm/dL Hct (34.0-46.0) % Plt Count (150-450) k/uL Haptoglobin <8.0 L (31.2-198.0) mg/dL Sodium (137-145) mmol/L Glucose (74-99) mg/dL Calcium (8.4-10.2) mg/dL Procalcitonin 0.36 H (0.02-0.09) ng/mL Crossmatch See Detail 09/16/19 09/16/19 Range/Units 06:08 06:08 WBC 3.3 L (3.8-10.6) k/uL RBC 2.33 L (3.80-5.40) m/uL Hgb 6.9 L* (11.4-16.0) gm/dL Hct 19.7 L* (34.0-46.0) % Plt Count 21 L (150-450) k/uL Haptoglobin (31.2-198.0) mg/dL Sodium 131 L (137-145) mmol/L Glucose 100 H (74-99) mg/dL Calcium 7.8 L (8.4-10.2) mg/dL Procalcitonin (0.02-0.09) ng/mL Crossmatch Microbiology - Last 24 Hours (Table) 09/14/19 22:50 Blood Culture - Preliminary Blood No Growth after 24 hours Assessment and Plan Assessment: Generalized weakness and fatigue secondary to symptomatic anemia. Hemoglobin improved from 3.5-5.1 year status post 3 units of PRBC transfusion. 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 Disease progression as per recent imaging PET studies. History of CMV serology positive. Generally self-limiting. Oral sores. DVT prophylaxis with SCDs Plan: Patient be continued on blood transfusion and monitor fluid status. Follow-up H&H. No active bleeding at this time. Monitor platelet count. Patient was seen by oncology and the plan for bone marrow biopsy today. Continue with some SODA MOUTHWASH. Oncology team is considering salvage treatment. Final plan regarding chemotherapy once discussed with her oncologist in at [place]. ID team following the case closely for fever with CMV workup is unrevealing per ID team which are following the patient closely. Continue with nystatin and vicious lidocaine for her oral ulcers. DVT prophylaxis and GI prophylaxis. No heparin in view of her low hemoglobin and platelet Prognosis is guarded. Further recommendations based on the clinical course.
[2019-09-16] MEDS: SALT AND SODA MOUTHWASH 1,000 ML PO SCH ×3 (11:07→21:31)
[2019-09-16] MEDS: LIDOCAINE VISCOUS 2% 15 ML CUP MUCOUS MEM PRN ×2 (11:09→21:34)
[2019-09-16] MEDS ORDERED: PROPOFOL 10 MG/ML 20 ML VIAL IV ONE (12:06)
[2019-09-16] MEDS ORDERED: SODIUM CHLORIDE 0.9% 500 ML IV ONE (12:28)
[2019-09-16] MEDS ORDERED: valACYclovir 500 MG TAB PO SCH (13:15)
[2019-09-16] MEDS: DEXAMETHASONE 4 MG TAB PO SCH (13:58)
[2019-09-16] MEDS: SODIUM CHLORIDE 0.9% 1,000 ML IV SCH (14:00)
[2019-09-16 14:01] VITALS: BMI 21.2
[2019-09-16] MEDS: valACYclovir HCL 1,000 MG TABLET PO SCH ×2 (16:30→21:30)
[2019-09-16 16:39] LABS: Phosphorus 2.9 mg/dL (2.5-4.5); Uric Acid 5.6 mg/dL (3.7-7.4)
--- NOTE | 2019-09-16 21:52 | PCN ---
PROCEDURE NOTE DATE OF PROCEDURE: 09/16/2019. PREOP DIAGNOSIS: Recurrent T-cell lymphoma. POSTOP DIAGNOSIS: Recurrent T-cell lymphoma. PROCEDURE PERFORMED: Bone marrow aspirate and biopsy. SITE: Right iliac crest. ANESTHESIA: Local with IV systemic sedation. CLINICAL DIAGNOSIS: Mrs. Alvarado is known to have T-cell lymphoma with bone marrow transplant, now unfortunately has recurrent disease. She presented with severe pancytopenia of unknown etiology. A bone marrow study is being done to evaluate the cause of the pancytopenia. DETAILS: Utilizing sterile technique, the skin overlying the right iliac crest was prepared with Betadine and alcohol. After adequate sterile draping local anesthesia with 1% lidocaine and IV systemic sedation size 11 4 inch Jamshidi needle was utilized to access the periosteum with ease. A total of 10 mL of aspirate and a 5 cm bone core biopsies were obtained. The patient tolerated the procedure well. There was no immediate procedure related complications. TOTAL BLOOD LOSS: Less than 1 mL. Results pending. MMODL / IJN: [id number] /
[2019-09-16 23:10] LABS: MCH 29.4 pg (25.0-35.0); MCHC 34.4 g/dL (31.0-37.0); MCV 85.6 fL (80.0-100.0); Mean Platelet Volume 11.5; RBC 2.12 m/uL (3.80-5.40); WBC 1.7 k/uL (3.8-10.6)
[2019-09-16 23:20] LABS: HCT 18.2 % (34.0-46.0); HGB 6.2 gm/dL (11.4-16.0)
[2019-09-16 23:23] LABS: Platelet Count 21 k/uL (150-450)
--- NOTE | 2019-09-17 00:01 | PN ---
PROGRESS NOTE DATE OF SERVICE: 09/16/2019. REASON FOR FOLLOWUP: Oral aphthous ulcer. INTERVAL HISTORY: The patient is currently afebrile. The main symptom remains to be oral ulcer and pains. The patient also has a lower lip lesion with some bleeding. Denies having any chest pain. No cough. No nausea, vomiting. No abdominal pain. No diarrhea. She is status post bone marrow biopsy today. PHYSICAL EXAMINATION: Blood pressure 100/56, pulse of 103 temperature 98.4, she is 99% on room air. General description is a middle-aged female lying in bed in no distress. HEENT examination: Oral aphthous ulcer. The patient did not have a bleeding condition on the right lower lip. Lungs unlabored breathing. Clear to auscultation anteriorly. Heart S1, S2. Regular rate and rhythm. ABDOMEN: Soft, no tenderness. Extremities: No edema of the feet. LABS: Hemoglobin 6.1, white count of 3.3. DIAGNOSTIC IMPRESSION AND PLAN: Patient with multiple oral aphthous ulcers likely secondary to underlying hematological malignancy. Clinic suspicious for underlying viral etiology such as herpes. She did have a right lower lip lesion which be herpetic with some bleeding. We will add oral Valtrex and see if he responds to it and monitor clinical course closely. Continue supportive care. MMODL / IJN: [id number] /
[2019-09-17 01:18] LABS: EBV-EA (IgG) <0.2 AI; EBV-VCA (IgG) >8.0 AI; EBV-VCA (IgM) <0.2 AI
[2019-09-17 01:39] LABS: Hepatitis B Core IgM Non-Reactive (Non-Reactive); Hepatitis B Surface AB- Quant 11.9 mIU/mL; Hepatitis B Surface Antibody Reactive (Non-Reactive)
[2019-09-17] MEDS: HYDROcodone/APAP 5-325MG 1 EACH TAB PO PRN ×2 (04:13→21:12)
[2019-09-17] MEDS: ALLOPURINOL 100 MG TAB PO SCH (08:32)
[2019-09-17] MEDS: ASCORBIC ACID 500 MG TAB PO SCH (08:32)
[2019-09-17] MEDS: DEXAMETHASONE 4 MG TAB PO SCH (08:35)
[2019-09-17] MEDS: CHOLECALCIFEROL 400 UNIT TAB PO SCH (08:35)
[2019-09-17] MEDS: NYSTATIN 100,000 UNIT/ML SUSP 500,000 UNIT/5 ML CUP PO SCH ×4 (08:35→21:13)
[2019-09-17] MEDS: valACYclovir HCL 1,000 MG TABLET PO SCH ×3 (08:35→21:13)
[2019-09-17] MEDS: LACTATED RINGERS 1,000 ML IV SCH (08:38)
[2019-09-17] MEDS: SALT AND SODA MOUTHWASH 1,000 ML PO SCH ×6 (08:52→23:58)
[2019-09-17] MEDS: LIDOCAINE VISCOUS 2% 15 ML CUP MUCOUS MEM PRN ×2 (11:24→21:12)
[2019-09-17 11:42] LABS: African American GFR (CKD) >90 (>60 ml/min/1.73 sqM); Anion Gap 3 mmol/L; Blood Urea Nitrogen 20 mg/dL (7-17); Calcium 8.6 mg/dL (8.4-10.2); Carbon Dioxide 28 mmol/L (22-30); Chloride 101 mmol/L (98-107); Glucose 117 mg/dL (74-99); Non-African American GFR(CKD) >90 (>60 ml/min/1.73 sqM); Sodium 132 mmol/L (137-145)
[2019-09-17 12:08] LABS: CMV DNA Qualitative Not detected (Not detected); CMV DNA, Quantitative <50 IU/mL (<50); LOG CMV Copies/mL <126 Copies/mL (<126); Log Cytomegalovirus <1.70 (<1.70)
[2019-09-17 12:24] LABS: HCT 21.2 % (34.0-46.0); HGB 7.5 gm/dL (11.4-16.0); MCH 29.7 pg (25.0-35.0); MCHC 35.2 g/dL (31.0-37.0); MCV 84.3 fL (80.0-100.0); Mean Platelet Volume 10.9; RBC 2.51 m/uL (3.80-5.40); RDW 14.5 % (11.5-15.5); WBC 2.7 k/uL (3.8-10.6)
[2019-09-17] MEDS: PANTOPRAZOLE 40 MG/10 ML VIAL IV SCH (12:51)
[2019-09-17] MEDS: SODIUM CHLORIDE 0.9% 1,000 ML IV SCH (12:57)
[2019-09-17 12:58] LABS: Platelet Count 19 k/uL (150-450)
[2019-09-17 13:01] LABS: Lymphocytes # (M) 0.89 k/uL (1.0-4.8); Monocytes # (M) 0.24 k/uL (0-1.0); Neutrophils # (M) 1.57 k/uL (1.3-7.7); Neutrophils % (M) 58 %; Nucleated Red Blood Cells 0 /100 WBC (0-0); Total Cells Counted 100
--- NOTE | 2019-09-17 19:15 | P.PN ---
Subjective Progress Note Date: 09/17/19 Principal diagnosis: Pancytopenia, recurrent angioimmunoblastic T-cell lymphoma In f/u today pt thinks she is feeling a little better, no c/o re: bone marrow biopsy site, oral irritation persists, she has modified her diet to tolerate, she is tolerating most liquids. No other c/o. Objective - Vital Signs Vital signs: Vital Signs Temp 98.5 F 09/17/19 12:00 Pulse 88 09/17/19 12:00 Resp 16 09/17/19 12:00 BP 109/62 09/17/19 12:00 Pulse Ox 99 09/17/19 12:00 Intake & Output 09/16/19 09/17/19 09/17/19 18:59 06:59 18:59 Intake Total 200 0 1270 Balance 200 0 1270 Weight 52.7 kg 52.8 kg Intake: IV 200 Oral 960 Blood Product 0 310 Rc Irr As1 Unit 0 310 [id number] Other: Voiding Method Bedside Commode Bedside Commode # Voids 3 2 0 # Bowel Movements 0 - Constitutional General appearance: Present: cooperative, no acute distress, thin - EENT EENT Comment(s): scattered small ulcerations persist Eyes: Present: anicteric sclerae, EOMI ENT: Present: hearing grossly normal, pharyngeal erythema - Respiratory Respiratory: bilateral: CTA - Cardiovascular Heart sounds: normal: S1, S2 - Peripheral edema leg Peripheral Edema: bilateral: None - Integumentary Integumentary Comment(s): right iliac crest bone marrow incision well healed, no bruising or tenderness with palpation - Neurologic Neurologic: Present: CNII-XII intact - Musculoskeletal Musculoskeletal: Present: generalized weakness, strength equal bilaterally - Psychiatric Psychiatric: Present: A&O x's 3, appropriate affect, intact judgment & insight - Labs CBC & Chem 7: 09/17/19 10:30 09/17/19 10:30 Labs: Abnormal Lab Results - Last 24 Hours (Table) 09/14/19 09/14/19 09/16/19 Range/Units 02:35 02:35 22:20 WBC 1.7 L (3.8-10.6) k/uL RBC 2.12 L (3.80-5.40) m/uL Hgb 6.2 L* (11.4-16.0) gm/dL Hct 18.2 L* (34.0-46.0) % Plt Count 21 L (150-450) k/uL Lymphocytes # (Manual) (1.0-4.8) k/uL Sodium (137-145) mmol/L BUN (7-17) mg/dL Glucose (74-99) mg/dL EBV Capsid Ag IgG Intrp POSITIVE H (NEGATIVE) EBV Nuc Ag IgG Interp POSITIVE H (NEGATIVE) Hep Bs Antibody Reactive H (Non-Reactive) Crossmatch 09/17/19 09/17/19 09/17/19 Range/Units 00:23 10:30 10:30 WBC 2.7 L (3.8-10.6) k/uL RBC 2.51 L (3.80-5.40) m/uL Hgb 7.5 L (11.4-16.0) gm/dL Hct 21.2 L (34.0-46.0) % Plt Count 19 L* (150-450) k/uL Lymphocytes # (Manual) 0.89 L (1.0-4.8) k/uL Sodium 132 L (137-145) mmol/L BUN 20 H (7-17) mg/dL Glucose 117 H (74-99) mg/dL EBV Capsid Ag IgG Intrp (NEGATIVE) EBV Nuc Ag IgG Interp (NEGATIVE) Hep Bs Antibody (Non-Reactive) Crossmatch See Detail Microbiology - Last 24 Hours (Table) 09/14/19 22:50 Blood Culture - Preliminary Blood No Growth after 48 hours Assessment and Plan (1) Angioimmunoblastic T-cell lymphoma Narrative/Plan: Bone marrow complete, pending results Pulse dose dex started x 4 days (did send Rx for 1 more day in case pt gets discharged on ) CBC in office on Sunday to monitor counts and see if pt need blood products F/U Dr. Dhillon later in the week for bone marrow results and to get started on romidepsin Current Visit: Yes Status: Acute Priority: High Code(s): C86.5 - ANGIOIMMUNOBLASTIC T-CELL LYMPHOMA SNOMED Code(s): 314945626 (2) Pancytopenia Narrative/Plan: Most likely due to disease. Bone marrow biopsy and aspirate complete. Transfuse to keep Hgb 7, 1 unit ordered today for Hgb 6.2 Transfuse to keep Platelets >10,000, 21,000 today No intervention for WBC at this time. CBC on Sunday in office Current Visit: Yes Status: Acute Priority: High Code(s): D61.818 - OTHER PANCYTOPENIA SNOMED Code(s): 098624122 (3) Canker sores oral Narrative/Plan: No improvement, cont supportive care and modified diet Current Visit: Yes Status: Acute Priority: High Code(s): K12.0 - RECURRENT ORAL APHTHAE SNOMED Code(s): 494989618
--- NOTE | 2019-09-17 19:49 | PN ---
PROGRESS NOTE DATE OF SERVICE: 09/17/2019 REASON FOR FOLLOWUP: Oral aphthous ulcer and a question of herpes labialis. INTERVAL HISTORY: The patient is currently afebrile. The patient is still complaining of sores in her mouth. The patient denies having any difficulty swallowing. No nausea, no vomiting, no abdominal pain or diarrhea. PHYSICAL EXAMINATION: Her vital signs are stable. General description is a middle-aged female lying in bed in no distress. RESPIRATORY SYSTEM: Unlabored breathing. Clear to auscultation anteriorly. HEART: S1, S2. Regular rate and rhythm. ABDOMEN: Soft. No tenderness. LABS: Hemoglobin 7.5, white count 2.7 with a creatinine 0.55. DIAGNOSTIC IMPRESSION AND PLAN: Patient with oral aphthous ulcer likely secondary to underlying hematological malignancy. Clinical suspicion low for underlying viral or fungal etiology. The patient has been on nystatin swish and swallow and Valtrex; did not have significant improvement. Will monitor closely and continue supportive care. MMODL / IJN: [id number] / MTDD
--- NOTE | 2019-09-17 22:56 | P.PN ---
Progress Note - Text Progress Note Date: 09/17/19 Presenting complaint: Weak and tired Interval history: This is a very pleasant 52 patient was a diagnosis of angioimmunoblastic T-cell lymphoma diagnosed in summer. Presented then with a rash and adenopathy. She was treated with chemotherapy followed by autologous stem cell transplant in November 2018. Subsequently a PET scan was done and patient still to progression of the disease with further adenopathy and splenomegaly. Present to the ER with feeling weak and tired. Also hemoglobin of 3.5. Platelets of 40. Also has oral aphthous ulcers. Patient was transfused 6 units of RBC. Patient had a bone marrow biopsy done on 09/16/[address] Neff Today-sitting upon a chair. Still being bothered by aphthous ulcers oral cavity. Is able to tolerate some diet. Did have a bowel movement. Review of systems: Was done for constitutional, cardiovascular, GI, pulmonary. relevant finding as above Active Medications Acetaminophen (Tylenol Tab) 650 mg PO Q6HR PRN PRN Reason: Mild Pain or Fever > 100.5 Last Admin: 09/15/19 22:11 Dose: 650 mg Documented by: Hydrocodone Bitart/Acetaminophen ([place] 5-325) 1 each PO Q6H PRN PRN Reason: Pain Last Admin: 09/17/19 21:12 Dose: 1 each Documented by: Allopurinol (Zyloprim) 100 mg PO DAILY [facility] Last Admin: 09/17/19 08:32 Dose: 100 mg Documented by: Ascorbic Acid (Vitamin C) 500 mg PO DAILY [facility] Last Admin: 09/17/19 08:32 Dose: 500 mg Documented by: Cholecalciferol (Vitamin D3) 400 unit PO DAILY [facility] Last Admin: 09/17/19 08:35 Dose: 400 unit Documented by: Dexamethasone (Hexadrol) 40 mg PO DAILY [facility] Stop: 09/19/19 09:01 Last Admin: 09/17/19 08:35 Dose: 40 mg Documented by: Sodium Chloride (Saline 0.9%) 1,000 mls @ 20 mls/hr IV .Q24H [facility] Last Admin: 09/17/19 12:57 Dose: Not Given Documented by: Lactated Ringer's (Lactated Ringers) 1,000 mls @ 20 mls/hr IV .Q24H [facility] Last Admin: 09/17/19 08:38 Dose: Not Given Documented by: Lidocaine HCl (Xylocaine Viscous) 5 ml MUCOUS MEM Q8HR PRN PRN Reason: Mouth Sore Pain Last Admin: 09/17/19 21:12 Dose: 5 ml Documented by: Lidocaine HCl (.Xylocaine 1% Inj (10mg/Ml) For Iv Start) 0.1 ml INTRADERMA PER PROTOCOL PRN PRN Reason: IV Start Naloxone HCl (Narcan) 0.2 mg IV Q2M PRN PRN Reason: Opioid Reversal Nystatin (Mycostatin Oral Susp) 500,000 unit PO QID [facility] Last Admin: 09/17/19 21:13 Dose: 500,000 unit Documented by: Ondansetron HCl (Zofran) 4 mg IVP Q8HR PRN PRN Reason: Nausea And Vomiting Pantoprazole Sodium (Protonix) 40 mg PO -BRKFST [facility] Sodium Bicarbonate () 5 ml PO 5XD [facility] Last Admin: 09/17/19 21:13 Dose: 5 ml Documented by: Sodium Bicarbonate () 5 ml PO QID PRN PRN Reason: Pain Valacyclovir HCl (Valtrex) 1,000 mg PO TID [facility] Last Admin: 09/17/19 21:13 Dose: 1,000 mg Documented by: Physical examination: VITAL SIGNS: 98.5, 88, 16, 109/62, 99% room air GENERAL: BMI 21.3, sitting up in a chair awake. EYES: Pupils equal. Conjunctiva normal. HEENT: Oral aphthous ulcers including that on the lips. NECK: JVD not raised; masses not palpable. HEART: First and second heart sounds are normal; no edema. LUNGS: Respiratory rate normal; clear to auscultation. ABDOMEN: Soft, nontender, liver spleen not palpable, no masses palpable. PSYCH: Alert and oriented x3; mood and affect slightly anxiousl. INVESTIGATIONS, reviewed in the clinical context: White count 2.7 hemoglobin 7.5 platelets 19 Sodium 132 crit 0.55 CMV IgM antibody nonreactive Chest x-ray negative Assessment: -Angioimmunoblastic T-cell lymphoma, progressive disease status post chemotherapy and bone marrow transplantation -Pancytopenia secondary to disease process -Oral cavity aphthous ulcers -Hyponatremia suspect normal osmolar -Lactic acidosis upon presentation to be from volume contraction Plan: Patient is status post bone marrow biopsy. Patient is on Valtrex, IV fluids, sodium bicarbonate, nystatin, Xylocaine Viscous, dexamethasone. Care was discussed with the patient. Told her she may benefit from a pured diet and shakes. Follow with oncology
[2019-09-18] MEDS: HYDROcodone/APAP 5-325MG 1 EACH TAB PO PRN ×2 (04:05→19:39)
[2019-09-18] MEDS: LIDOCAINE VISCOUS 2% 15 ML CUP MUCOUS MEM PRN ×3 (05:24→19:39)
[2019-09-18] MEDS: PANTOPRAZOLE 40 MG TABLET PO SCH (06:20)
[2019-09-18] MEDS: SALT AND SODA MOUTHWASH 1,000 ML PO SCH ×4 (06:21→19:39)
[2019-09-18 06:39] LABS: MCH 29.4 pg (25.0-35.0); MCV 83.8 fL (80.0-100.0); Mean Platelet Volume 10.8; RBC 1.95 m/uL (3.80-5.40); RDW 14.6 % (11.5-15.5); WBC 2.7 k/uL (3.8-10.6)
[2019-09-18] MEDS: LACTATED RINGERS 1,000 ML IV SCH (06:41)
[2019-09-18 06:47] LABS: HCT 16.3 % (34.0-46.0); HGB 5.7 gm/dL (11.4-16.0)
[2019-09-18 06:48] LABS: Platelet Count 15 k/uL (150-450)
[2019-09-18 07:55] LABS: Lymphocytes # (M) 1.24 k/uL (1.0-4.8); Monocytes # (M) 0.05 k/uL (0-1.0); Neutrophils % (M) 52 %; Nucleated Red Blood Cells 0 /100 WBC (0-0); Total Cells Counted 100
[2019-09-18 07:56] LABS: Hypochromasia (M) Present; Large Platelets Present
[2019-09-18] MEDS: NYSTATIN 100,000 UNIT/ML SUSP 500,000 UNIT/5 ML CUP PO SCH ×4 (08:14→20:33)
[2019-09-18] MEDS: ALLOPURINOL 100 MG TAB PO SCH (08:14)
[2019-09-18] MEDS: ASCORBIC ACID 500 MG TAB PO SCH (08:14)
[2019-09-18] MEDS: valACYclovir HCL 1,000 MG TABLET PO SCH ×3 (08:14→19:39)
[2019-09-18] MEDS: CHOLECALCIFEROL 400 UNIT TAB PO SCH (08:14)
[2019-09-18] MEDS: DEXAMETHASONE 4 MG TAB PO SCH (08:14)
[2019-09-18 12:49] LABS: HCT 20.3 % (34.0-46.0); HGB 7.1 gm/dL (11.4-16.0); MCH 30.2 pg (25.0-35.0); MCHC 35.1 g/dL (31.0-37.0); Mean Platelet Volume 10.1; RBC 2.36 m/uL (3.80-5.40); RDW 14.1 % (11.5-15.5); WBC 2.4 k/uL (3.8-10.6)
[2019-09-18 13:10] LABS: Lymphocytes # (M) 0.94 k/uL (1.0-4.8); Monocytes # (M) 0.05 k/uL (0-1.0); Neutrophils # (M) 1.42 k/uL (1.3-7.7); Neutrophils % (M) 59 %; Nucleated Red Blood Cells 0 /100 WBC (0-0); Total Cells Counted 100
[2019-09-18 13:11] LABS: Hypochromasia (M) Present; Platelet Count 17 k/uL (150-450)
[2019-09-18] MEDS: SODIUM CHLORIDE 0.9% 1,000 ML IV SCH (16:54)
--- NOTE | 2019-09-18 21:56 | P.PN ---
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 Presented then with a rash and adenopathy. She was treated with chemotherapy followed by autologous stem cell transplant in November 2018. Subsequently a PET scan was done and patient still to progression of the disease with further adenopathy and splenomegaly. Present to the ER with feeling weak and tired. Also hemoglobin of 3.5. Platelets of 40. Also has oral aphthous ulcers. Patient was transfused 6 units of RBC. Patient had a bone marrow biopsy done on 09/16/[address] Neff Today-oral aphthous ulcers still bothering her. Able to keep some food down. Dropped hemoglobin again. Hematology informed. Review of systems: Was done for constitutional, cardiovascular, GI, pulmonary. relevant finding as above Active Medications Acetaminophen (Tylenol Tab) 650 mg PO Q6HR PRN PRN Reason: Mild Pain or Fever > 100.5 Last Admin: 09/15/19 22:11 Dose: 650 mg Documented by: Hydrocodone Bitart/Acetaminophen ([place] 5-325) 1 each PO Q6H PRN PRN Reason: Pain Last Admin: 09/18/19 19:39 Dose: 1 each Documented by: Allopurinol (Zyloprim) 100 mg PO DAILY [facility] Last Admin: 09/18/19 08:14 Dose: 100 mg Documented by: Ascorbic Acid (Vitamin C) 500 mg PO DAILY [facility] Last Admin: 09/18/19 08:14 Dose: 500 mg Documented by: Cholecalciferol (Vitamin D3) 400 unit PO DAILY [facility] Last Admin: 09/18/19 08:14 Dose: 400 unit Documented by: Dexamethasone (Hexadrol) 40 mg PO DAILY [facility] Stop: 09/19/19 09:01 Last Admin: 09/18/19 08:14 Dose: 40 mg Documented by: Sodium Chloride (Saline 0.9%) 1,000 mls @ 20 mls/hr IV .Q24H [facility] Last Admin: 09/18/19 16:54 Dose: Not Given Documented by: Lactated Ringer's (Lactated Ringers) 1,000 mls @ 20 mls/hr IV .Q24H [facility] Last Admin: 09/18/19 06:41 Dose: Not Given Documented by: Lidocaine HCl (.Xylocaine 1% Inj (10mg/Ml) For Iv Start) 0.1 ml INTRADERMA PER PROTOCOL PRN PRN Reason: IV Start Lidocaine HCl (Xylocaine Viscous) 5 ml MUCOUS MEM Q4HR PRN PRN Reason: Mouth Sore Pain Last Admin: 09/18/19 19:39 Dose: 5 ml Documented by: Naloxone HCl (Narcan) 0.2 mg IV Q2M PRN PRN Reason: Opioid Reversal Nystatin (Mycostatin Oral Susp) 500,000 unit PO QID [facility] Last Admin: 09/18/19 20:33 Dose: Not Given Documented by: Ondansetron HCl (Zofran) 4 mg IVP Q8HR PRN PRN Reason: Nausea And Vomiting Pantoprazole Sodium (Protonix) 40 mg PO AC-BRKFST [facility] Last Admin: 09/18/19 06:20 Dose: 40 mg Documented by: Sodium Bicarbonate () 5 ml PO 5XD [facility] Last Admin: 09/18/19 19:39 Dose: 5 ml Documented by: Sodium Bicarbonate () 5 ml PO QID PRN PRN Reason: Pain Valacyclovir HCl (Valtrex) 1,000 mg PO TID [facility] Last Admin: 09/18/19 19:39 Dose: 1,000 mg Documented by: Physical examination: VITAL SIGNS: 98.3, 79, 16, 103/58, 99% room air GENERAL: BMI 21.3, sitting up in a chair awake. EYES: Pupils equal. Conjunctiva normal. HEENT: Oral aphthous ulcers including that on the lips. NECK: JVD not raised; masses not palpable. HEART: First and second heart sounds are normal; no edema. LUNGS: Respiratory rate normal; clear to auscultation. ABDOMEN: Soft, nontender, liver spleen not palpable, no masses palpable. PSYCH: Alert and oriented x3; mood and affect slightly anxiousl. INVESTIGATIONS, reviewed in the clinical context: White count 2.7 hemoglobin 5.7 crit is 15 Previous testing White count 2.7 hemoglobin 7.5 platelets 19 Sodium 132 crit 0.55 CMV IgM antibody nonreactive Chest x-ray negative Assessment: -Angioimmunoblastic T-cell lymphoma, progressive disease status post chemotherapy and bone marrow transplantation -Pancytopenia secondary to disease process, worsening -Oral cavity aphthous ulcers -Hyponatremia suspect normal osmolar -Lactic acidosis upon presentation to be from volume contraction -Worsening severe anemia. Questions hemolysis. Along with poor bone marrow function. Plan: Unit of blood was ordered. Hematology was informed. Rather aggressive T-cell lymphoma course. We'll await further input from hematology. Discussed with the patient. Repeat CBC later today. Check CBC in the morning.
--- NOTE | 2019-09-18 22:39 | P.PN ---
Subjective Progress Note Date: 09/18/19 Principal diagnosis: patient seen in follow-up, continues to be stable has ulcers which are not healing yet Pleasant 58-year-old female with a known history of T-cell lymphoma status post stem cell transplant and 72,019 at [facility] [place], admitted with generalized weakness and fatigue and worsening mouth ulcers. She has positive cytomegalovirus as well. Currently having pancytopenia and transfusion dependent. Objective - Vital Signs Vital signs: Vital Signs Temp 98.3 F 09/18/19 20:00 Pulse 86 09/18/19 20:00 Resp 16 09/18/19 20:00 BP 107/59 09/18/19 20:00 Pulse Ox 99 09/18/19 20:00 Intake & Output 09/18/19 09/18/19 09/19/19 06:59 18:59 06:59 Intake Total 430 Balance 430 Weight 52.3 kg Intake: Oral 120 Blood Product 310 Rc Irr As1 Unit 310 [id number] Other: Voiding Method Bedside Commode Bedside Commode # Voids 1 0 2 - Exam The patient appeared well nourished and normally developed. Vital signs as documented. Head exam is unremarkable. No scleral icterus or corneal arcus noted. Neck is without jugular venous distension, thyromegaly, or carotid b ruits. Carotid upstrokes are brisk bilaterally. Lungs are clear to auscultation and percussion. Cardiac exam reveals the PMI to be normally sized and situated. Rhythm is regular. First and second heart sounds normal. No murmurs, rubs or gallops. Abdominal exam reveals normal bowel sounds, no masses, no organomegaly and no aortic enlargement. Extremities are nonedematous and both femoral and pedal pulses are normal. - Labs CBC & Chem 7: 09/18/19 12:28 09/17/19 10:30 Labs: Abnormal Lab Results - Last 24 Hours (Table) 09/17/19 09/18/19 09/18/19 Range/Units 00:23 05:50 12:28 WBC 2.7 L 2.4 L (3.8-10.6) k/uL RBC 1.95 L 2.36 L (3.80-5.40) m/uL Hgb 5.7 L* D 7.1 L (11.4-16.0) gm/dL Hct 16.3 L* 20.3 L (34.0-46.0) % Plt Count 15 L* 17 L* (150-450) k/uL Lymphocytes # (Manual) 0.94 L (1.0-4.8) k/uL Crossmatch See Detail Microbiology - Last 24 Hours (Table) 09/14/19 22:50 Blood Culture - Preliminary Blood No Growth after 72 hours Assessment and Plan Assessment: Impression and plan: 1. Relapsed refractory angioimmunoblastic T-cell lymphoma: - Status post chemotherapy followed by autologousstem cell transplant in November 2018. Currently disease progression with documentation from PET scan. - Patient symptomatic with a rash, adenopathy, or ulcers. - Status post a staging bone marrow biopsy.on 09/16/2019. - Plan for consideration of salvage treatment. Likely to be started next week. - Status post pulse steroids, Plan for Romidepsin next week 2. persistent pancytopenia with anemia, thrombocytopenia: - Transfusions to keep hemoglobin above 7 and platelets of 10,000. - Status post bone marrow biopsy. - I am to check haptoglobin, LDH, monitoring and continue transfusions. 3. CMV infection with CMV serology positive. 4. Persistent oral sores non-resolving posttreatment. Most recent hemoglobin 7.1 and platelets 17,000. Thank you for allowing me to participate in the care of your patient. Marj Fabian MD School Commissioner, [facility] Hematology Oncology [id number], [address] [place] [address] Office: [phone]
[2019-09-18 23:50] LABS: MCH 29.4 pg (25.0-35.0); MCHC 34.3 g/dL (31.0-37.0); MCV 85.6 fL (80.0-100.0); Mean Platelet Volume 10.9; RBC 2.01 m/uL (3.80-5.40); RDW 14.2 % (11.5-15.5); WBC 2.5 k/uL (3.8-10.6)
[2019-09-19] MEDS: SALT AND SODA MOUTHWASH 1,000 ML PO SCH ×6 (00:01→23:33)
[2019-09-19 00:03] LABS: African American GFR (CKD) >90 (>60 ml/min/1.73 sqM); Anion Gap 4 mmol/L; Blood Urea Nitrogen 28 mg/dL (7-17); Calcium 8.3 mg/dL (8.4-10.2); Carbon Dioxide 27 mmol/L (22-30); Chloride 103 mmol/L (98-107); Glucose 110 mg/dL (74-99); HCT 17.3 % (34.0-46.0); HGB 5.9 gm/dL (11.4-16.0); LDH 1560 U/L (313-618); Non-African American GFR(CKD) >90 (>60 ml/min/1.73 sqM); Potassium 3.9 mmol/L (3.5-5.1); Sodium 134 mmol/L (137-145)
[2019-09-19 00:04] LABS: Platelet Count 17 k/uL (150-450)
[2019-09-19 00:58] LABS: D-Dimer 2.32 mg/L FEU (<0.60); INR 1.1 (<1.2)
[2019-09-19 00:59] LABS: Partial Thromboplastin Time 24.3 sec (22.0-30.0); Prothrombin Time 11.6 sec (9.0-12.0)
[2019-09-19 01:06] LABS: Band Neutrophils % 1 %; Lymphocytes # (M) 1.13 k/uL (1.0-4.8); Neutrophils % (M) 50 %; Nucleated Red Blood Cells 0 /100 WBC (0-0); Total Cells Counted 100
[2019-09-19] MEDS: LIDOCAINE VISCOUS 2% 15 ML CUP MUCOUS MEM PRN ×3 (05:07→21:31)
[2019-09-19] MEDS: HYDROcodone/APAP 5-325MG 1 EACH TAB PO PRN (05:07)
[2019-09-19] MEDS: LACTATED RINGERS 1,000 ML IV SCH (05:24)
[2019-09-19] MEDS: PANTOPRAZOLE 40 MG TABLET PO SCH (05:48)
[2019-09-19] MEDS: DEXAMETHASONE 4 MG TAB PO SCH (08:06)
[2019-09-19] MEDS: ALLOPURINOL 100 MG TAB PO SCH (08:06)
[2019-09-19] MEDS: ASCORBIC ACID 500 MG TAB PO SCH (08:06)
[2019-09-19] MEDS: CHOLECALCIFEROL 400 UNIT TAB PO SCH (08:06)
[2019-09-19] MEDS: NYSTATIN 100,000 UNIT/ML SUSP 500,000 UNIT/5 ML CUP PO SCH ×5 (08:07→21:25)
[2019-09-19] MEDS: valACYclovir HCL 1,000 MG TABLET PO SCH ×3 (08:07→21:23)
[2019-09-19 13:27] LABS: HSV I IgG Interp POSITIVE (NEGATIVE); HSV II IgG Interp NEGATIVE (NEGATIVE)
[2019-09-19] MEDS: SODIUM CHLORIDE 0.9% 1,000 ML IV SCH (17:12)
--- NOTE | 2019-09-19 19:44 | P.PN ---
Subjective Progress Note Date: 09/19/19 Principal diagnosis: patient seen in follow-up, continues to be stable has ulcers which are not healing yet Pleasant 58-year-old female with a known history of T-cell lymphoma status post stem cell transplant and 72,019 at [facility] [place], admitted with generalized weakness and fatigue and worsening mouth ulcers. She has positive cytomegalovirus as well. Currently having pancytopenia and transfusion dependent. Objective - Vital Signs Vital signs: Vital Signs Temp 97.4 F L 09/19/19 16:00 Pulse 79 09/19/19 16:00 Resp 16 09/19/19 16:00 BP 107/65 09/19/19 16:00 Pulse Ox 99 09/19/19 16:00 Intake & Output 09/19/19 09/19/19 09/20/19 06:59 18:59 06:59 Intake Total 320 1420 Balance 320 1420 Weight 52.5 kg 52.5 kg Intake: IV 10 0.9 10 Oral 1110 Blood Product 310 310 Rc Irr As1 Unit 310 [id number] Rc Irr As1 Unit 0 310 [id number] Other: Voiding Method Bedside Commode # Voids 1 1 - Exam The patient appeared well nourished and normally developed. Vital signs as documented. Head exam is unremarkable. No scleral icterus or corneal arcus noted. Neck is without jugular venous distension, thyromegaly, or carotid bruits. Carotid upstrokes are brisk bilaterally. Lungs are clear to auscultation and percussion. Cardiac exam reveals the PMI to be normally sized and situated. Rhythm is regular. First and second heart sounds normal. No murmurs, rubs or gallops. Abdominal exam reveals normal bowel sounds, no masses, no organomegaly and no aortic enlargement. Extremities are nonedematous and both femoral and pedal pulses are normal. - Labs CBC & Chem 7: 09/18/19 23:25 09/18/19 23:25 Labs: Abnormal Lab Results - Last 24 Hours (Table) 09/17/19 09/18/19 09/18/19 Range/Units 00:23 05:50 23:25 WBC 2.5 L (3.8-10.6) k/uL RBC 2.01 L (3.80-5.40) m/uL Hgb 5.9 L* (11.4-16.0) gm/dL Hct 17.3 L* (34.0-46.0) % Plt Count 17 L* (150-450) k/uL Neutrophils # (Manual) 1.20 L (1.3-7.7) k/uL Haptoglobin (31.2-198.0) mg/dL Fibrinogen (200-500) mg/dL D-Dimer (<0.60) mg/L FEU Sodium (137-145) mmol/L BUN (7-17) mg/dL Glucose (74-99) mg/dL Calcium (8.4-10.2) mg/dL Lactate Dehydrogenase (313-618) U/L HSV I IgG Interpret POSITIVE H (NEGATIVE) Crossmatch See Detail 09/18/19 09/18/19 09/18/19 Range/Units 23:25 23:25 23:25 WBC (3.8-10.6) k/uL RBC (3.80-5.40) m/uL Hgb (11.4-16.0) gm/dL Hct (34.0-46.0) % Plt Count (150-450) k/uL Neutrophils # (Manual) (1.3-7.7) k/uL Haptoglobin <8.0 L (31.2-198.0) mg/dL Fibrinogen 116 L (200-500) mg/dL D-Dimer 2.32 H (<0.60) mg/L FEU Sodium 134 L (137-145) mmol/L BUN 28 H (7-17) mg/dL Glucose 110 H (74-99) mg/dL Calcium 8.3 L (8.4-10.2) mg/dL Lactate Dehydrogenase 1560 H (313-618) U/L HSV I IgG Interpret (NEGATIVE) Crossmatch Microbiology - Last 24 Hours (Table) 09/14/19 22:50 Blood Culture - Preliminary Blood No Growth after 96 hours Assessment and Plan Assessment: Impression and plan: 1. Relapsed refractory angioimmunoblastic T-cell lymphoma: - Status post chemotherapy followed by autologousstem cell transplant in November 2018. Currently disease progression with documentation from PET scan. - Patient symptomatic with a rash, adenopathy, or ulcers. - Status post a staging bone marrow biopsy.on 09/16/2019. - Plan for consideration of salvage treatment. Likely to be started next week. - Status post pulse steroids, - Plan for chemotherapy with Romidepsin next week 2. Persistent pancytopenia with anemia, thrombocytopenia: Hemolytic anemia. likely DIC secondary to sepsis vs Lymphoma: - Transfusions to keep hemoglobin above 7 and platelets of 10,000. - Status post bone marrow biopsy. - I am to check haptoglobin, LDH, monitoring and continue transfusions. - Haptoglobin is less than 8,PT/INR normal, fibrinogen low at 116, d-dimer elevated,LDH high at 1560, calcium is low,cheng test is negative. - Nonimmune hemolysis. check cold agglutinin, mycoplasma. - Repeat haptoglobin and LDH, checked plasma free hemoglobin, urine hemosiderin - close monitoring as outpatient repeat CBC CMP. 3. CMV infection with CMV serology positive. 4. Persistent oral sores non-resolving posttreatment. Most recent hemoglobin 7.1 and platelets 17,000. Thank you for allowing me to participate in the care of your patient. Marj Fabian MD Hospice Volunteer Coordinator, [facility] Hematology Oncology [id number], [address] [place] [address] Office: [phone]
[2019-09-19 20:39] LABS: HCT 20.8 % (34.0-46.0); MCH 29.3 pg (25.0-35.0); MCHC 35.4 g/dL (31.0-37.0); MCV 82.7 fL (80.0-100.0); Mean Platelet Volume 12.2; RBC 2.52 m/uL (3.80-5.40); RDW 14.6 % (11.5-15.5); WBC 2.9 k/uL (3.8-10.6)
[2019-09-19 20:42] LABS: Platelet Count 14 k/uL (150-450)
[2019-09-19 20:43] LABS: HGB 7.4 gm/dL (11.4-16.0)
[2019-09-19 20:51] LABS: ALT 15 U/L (9-52); AST 28 U/L (14-36); African American GFR (CKD) >90 (>60 ml/min/1.73 sqM); Albumin 3.2 g/dL (3.5-5.0); Alkaline Phosphatase 48 U/L (38-126); Anion Gap 7 mmol/L; Blood Urea Nitrogen 32 mg/dL (7-17); Calcium 8.8 mg/dL (8.4-10.2); Carbon Dioxide 26 mmol/L (22-30); Chloride 103 mmol/L (98-107); Glucose 144 mg/dL (74-99); LDH 1884 U/L (313-618); Non-African American GFR(CKD) >90 (>60 ml/min/1.73 sqM); Potassium 4.3 mmol/L (3.5-5.1); Sodium 136 mmol/L (137-145); Total Bilirubin 2.7 mg/dL (0.2-1.3); Total Protein 5.9 g/dL (6.3-8.2)
[2019-09-19 22:23] LABS: Band Neutrophils % 2 %; Lymphocytes # (M) 1.31 k/uL (1.0-4.8); Monocytes # (M) 0.17 k/uL (0-1.0); Neutrophils % (M) 47 %; Nucleated Red Blood Cells 0 /100 WBC (0-0); Total Cells Counted 100
[2019-09-19 22:24] LABS: Rouleaux Present
--- NOTE | 2019-09-19 23:15 | P.PN ---
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 Presented then with a rash and adenopathy. She was treated with chemotherapy followed by autologous stem cell transplant in November 2018. Subsequently a PET scan was done and patient still to progression of the disease with further adenopathy and splenomegaly. Present to the ER with feeling weak and tired. Also hemoglobin of 3.5. Platelets of 40. Also has oral aphthous ulcers. Patient was transfused 6 units of RBC. Patient had a bone marrow biopsy done on 09/16/[address] Neff Today-no new issues. Hemolysis workup per hematology. Tolerate to some diet. Hemoglobin did drop down to 5.9 last night. Was transfused blood. Review of systems: Was done for constitutional, cardiovascular, GI, pulmonary. r elevant finding as above Active Medications Acetaminophen (Tylenol Tab) 650 mg PO Q6HR PRN PRN Reason: Mild Pain or Fever > 100.5 Last Admin: 09/15/19 22:11 Dose: 650 mg Documented by: Hydrocodone Bitart/Acetaminophen ([place] 5-325) 1 each PO Q6H PRN PRN Reason: Pain Last Admin: 09/19/19 05:07 Dose: 1 each Documented by: Allopurinol (Zyloprim) 100 mg PO DAILY [facility] Last Admin: 09/19/19 08:06 Dose: 100 mg Documented by: Ascorbic Acid (Vitamin C) 500 mg PO DAILY [facility] Last Admin: 09/19/19 08:06 Dose: 500 mg Documented by: Cholecalciferol (Vitamin D3) 400 unit PO DAILY [facility] Last Admin: 09/19/19 08:06 Dose: 400 unit Documented by: Sodium Chloride (Saline 0.9%) 1,000 mls @ 20 mls/hr IV .Q24H [facility] Last Admin: 09/19/19 17:12 Dose: Not Given Documented by: Lactated Ringer's (Lactated Ringers) 1,000 mls @ 20 mls/hr IV .Q24H [facility] Last Admin: 09/19/19 05:24 Dose: Not Given Documented by: Lidocaine HCl (.Xylocaine 1% Inj (10mg/Ml) For Iv Start) 0.1 ml INTRADERMA PER PROTOCOL PRN PRN Reason: IV Start Lidocaine HCl (Xylocaine Viscous) 5 ml MUCOUS MEM Q4HR PRN PRN Reason: Mouth Sore Pain Last Admin: 09/19/19 21:31 Dose: 5 ml Documented by: Naloxone HCl (Narcan) 0.2 mg IV Q2M PRN PRN Reason: Opioid Reversal Nystatin (Mycostatin Oral Susp) 500,000 unit PO QID [facility] Last Admin: 09/19/19 21:25 Dose: Not Given Documented by: Ondansetron HCl (Zofran) 4 mg IVP Q8HR PRN PRN Reason: Nausea And Vomiting Pantoprazole Sodium (Protonix) 40 mg PO AC-BRKFST [facility] Last Admin: 09/19/19 05:48 Dose: 40 mg Documented by: Sodium Bicarbonate () 5 ml PO 5XD [facility] Last Admin: 09/19/19 21:22 Dose: 5 ml Documented by: Sodium Bicarbonate () 5 ml PO QID PRN PRN Reason: Pain Valacyclovir HCl (Valtrex) 1,000 mg PO TID [facility] Last Admin: 09/19/19 21:23 Dose: 1,000 mg Documented by: Physical examination: VITAL SIGNS: 97.4, 75, 16, 107/65, 99% on room air GENERAL:, sitting up in a chair, comfortable EYES: Pupils equal. Conjunctiva normal. HEENT: Oral aphthous ulcers including that on the lips. NECK: JVD not raised; masses not palpable. HEART: First and second heart sounds are normal; no edema. LUNGS: Respiratory rate normal; clear to auscultation. ABDOMEN: Soft, nontender, liver spleen not palpable, no masses palpable. PSYCH: Alert and oriented x3; mood and affect slightly anxiousl. INVESTIGATIONS, reviewed in the clinical context: Hemoglobin 5.9 last night. 7.4 this morning after blood transfusion. Platelets 17. White count 2.5 Fibrinogen 116 d-dimer 2.3 to LDH 1560 haptoglobin less than 8 Previous testing White count 2.7 hemoglobin 7.5 platelets 19 Sodium 132 crit 0.55 CMV IgM antibody nonreactive Chest x-ray negative Assessment: -Angioimmunoblastic T-cell lymphoma, progressive disease status post chemotherapy and bone marrow transplantation -Non-immune hemolysis, recurrent -Pancytopenia secondary to disease process, worsening -Oral cavity aphthous ulcers -Hyponatremia suspect normal osmolar -Lactic acidosis upon presentation to be from volume contraction -Worsening severe anemia. Questions hemolysis. Along with poor bone marrow function. Plan: Patient received a total of 9 units of packed red blood cells. Repeat CBC in the morning. Follow with hematology
[2019-09-20] MEDS: SALT AND SODA MOUTHWASH 1,000 ML PO SCH ×5 (05:26→23:13)
[2019-09-20] MEDS: LACTATED RINGERS 1,000 ML IV SCH (06:28)
[2019-09-20] MEDS: PANTOPRAZOLE 40 MG TABLET PO SCH (06:32)
[2019-09-20 06:50] LABS: MCH 29.1 pg (25.0-35.0); MCHC 34.6 g/dL (31.0-37.0); MCV 84.1 fL (80.0-100.0); Mean Platelet Volume 9.2; RBC 2.02 m/uL (3.80-5.40); RDW 14.5 % (11.5-15.5); WBC 2.9 k/uL (3.8-10.6)
[2019-09-20 06:55] LABS: HGB 5.9 gm/dL (11.4-16.0)
[2019-09-20 06:56] LABS: Platelet Count 16 k/uL (150-450)
[2019-09-20] MEDS ORDERED: FUROSEMIDE 10 MG/ML 2 ML VIAL IV STA (07:08)
[2019-09-20] MEDS: LIDOCAINE VISCOUS 2% 15 ML CUP MUCOUS MEM PRN ×4 (07:39→21:45)
[2019-09-20] MEDS: NYSTATIN 100,000 UNIT/ML SUSP 500,000 UNIT/5 ML CUP PO SCH ×4 (09:16→23:13)
[2019-09-20] MEDS: ASCORBIC ACID 500 MG TAB PO SCH (09:20)
[2019-09-20] MEDS: CHOLECALCIFEROL 400 UNIT TAB PO SCH (09:20)
[2019-09-20] MEDS: valACYclovir HCL 1,000 MG TABLET PO SCH ×3 (09:20→21:45)
[2019-09-20] MEDS: ALLOPURINOL 100 MG TAB PO SCH (09:20)
[2019-09-20] MEDS: SODIUM CHLORIDE 0.9% 1,000 ML IV SCH (12:16)
[2019-09-20] MEDS: predniSONE 20 MG TAB PO SCH (12:16)
--- NOTE | 2019-09-20 20:02 | P.PN ---
Subjective Progress Note Date: 09/20/19 Principal diagnosis: patient seen in follow-up, continues to be stable has ulcers which are not healing yet Pleasant 58-year-old female with a known history of T-cell lymphoma status post stem cell transplant and 72,019 at [facility] [place], admitted with generalized weakness and fatigue and worsening mouth ulcers. She has positive cytomegalovirus as well. Currently having pancytopenia and transfusion dependent. 09/20/2019, the patient continues to need PRBC almost 9 units so far given continues to have hemolysis nonimmune. Objective - Vital Signs Vital signs: Vital Signs Temp 97.8 F 09/20/19 18:01 Pulse 93 09/20/19 18:01 Resp 18 09/20/19 18:01 BP 116/59 09/20/19 18:01 Pulse Ox 99 09/20/19 16:00 Intake & Output 09/20/19 09/20/19 09/21/19 06:59 18:59 06:59 Intake Total 840 Balance 840 Weight 53.2 kg Intake: Oral 840 Blood Product 0 Rc Irr As1 Unit 0 [id number] Other: Voiding Method Bedside Commode Toilet # Voids 2 3 - Exam The patient appeared well nourished and normally developed. Vital signs as documented. Head exam is unremarkable. No scleral icterus or corneal arcus noted. Neck is without jugular venous distension, thyromegaly, or carotid bruits. Carotid upstrokes are brisk bilaterally. Lungs are clear to auscultation and percussion. Cardiac exam reveals the PMI to be normally sized and situated. Rhythm is regular. First and second heart sounds normal. No murmurs, rubs or gallops. Abdominal exam reveals normal bowel sounds, no masses, no organomegaly and no aortic enlargement. Extremities are nonedematous and both femoral and ped al pulses are normal. - Labs CBC & Chem 7: 09/20/19 05:25 09/19/19 20:27 Labs: Abnormal Lab Results - Last 24 Hours (Table) 09/19/19 09/19/19 09/19/19 Range/Units 20:27 20:27 20:27 WBC 2.9 L (3.8-10.6) k/uL RBC 2.52 L (3.80-5.40) m/uL Hgb 7.4 L D (11.4-16.0) gm/dL Hct 20.8 L (34.0-46.0) % Plt Count 14 L* (150-450) k/uL Haptoglobin (31.2-198.0) mg/dL Fibrinogen 125 L (200-500) mg/dL Sodium 136 L (137-145) mmol/L BUN 32 H (7-17) mg/dL Glucose 144 H (74-99) mg/dL Total Bilirubin 2.7 H (0.2-1.3) mg/dL Lactate Dehydrogenase 1884 H (313-618) U/L Total Protein 5.9 L (6.3-8.2) g/dL Albumin 3.2 L (3.5-5.0) g/dL Crossmatch 09/19/19 09/20/19 09/20/19 Range/Units 20:27 05:25 12:00 WBC 2.9 L (3.8-10.6) k/uL RBC 2.02 L (3.80-5.40) m/uL Hgb 5.9 L* D (11.4-16.0) gm/dL Hct 17.0 L* (34.0-46.0) % Plt Count 16 L* (150-450) k/uL Haptoglobin <8.0 L (31.2-198.0) mg/dL Fibrinogen (200-500) mg/dL Sodium (137-145) mmol/L BUN (7-17) mg/dL Glucose (74-99) mg/dL Total Bilirubin (0.2-1.3) mg/dL Lactate Dehydrogenase (313-618) U/L Total Protein (6.3-8.2) g/dL Albumin (3.5-5.0) g/dL Crossmatch See Detail Microbiology - Last 24 Hours (Table) 09/14/19 22:50 Blood Culture - Preliminary Blood No Growth after 120 hours Assessment and Plan Assessment: Impression and plan: 1. Relapsed refractory angioimmunoblastic T-cell lymphoma: - Status post chemotherapy followed by autologousstem cell transplant in 2018. Currently disease progression with documentation from PET scan. - Patient symptomatic with a rash, adenopathy, or ulcers. - Status post a staging bone marrow biopsy.on 09/16/2019. - Plan for consideration of salvage treatment. Likely to be started next week. - Status post pulse steroids, - Plan for chemotherapy with Romidepsin next week, as outpatient. 2. Persistent pancytopenia with anemia, thrombocytopenia: Hemolytic anemia. likely DIC secondary to sepsis vs Lymphoma: - Transfusions to keep hemoglobin above 7 and platelets of 10,000. - Status post bone marrow biopsy. - I am to check haptoglobin, LDH, monitoring and continue transfusions. - Haptoglobin is less than 8,PT/INR normal, fibrinogen low at 116, d-dimer elevated,LDH high at 1560, calcium is low,cheng test is negative. - Nonimmune hemolysis. check cold agglutinin, mycoplasma. - Repeat haptoglobin and LDH, checked plasma free hemoglobin, urine hemosiderin - close monitoring as outpatient repeat CBC CMP. - continues to hemolysis, again needed blood today. Patient wants to go home explained to her the risks. - We will likely go home tomorrow and will follow up very closely with clinic in 1 or 2 days. 3. CMV infection with CMV serology positive. 4. Persistent oral sores non-resolving posttreatment. Most recent hemoglobin 7.1 and platelets 17,000. Thank you for allowing me to participate in the care of your patient. Marj Fabian MD Adviser Sales, [facility] Hematology Oncology [id number], [address] [place] [address] Office: [phone] Time with Patient: Greater than 30
--- NOTE | 2019-09-20 21:24 | P.PN ---
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 Presented then with a rash and adenopathy. She was treated with chemotherapy followed by autologous stem cell transplant in November 2018. Subsequently a PET scan was done and patient still to progression of the disease with further adenopathy and splenomegaly. Present to the ER with feeling weak and tired. Also hemoglobin of 3.5. Platelets of 40. Also has oral aphthous ulcers. Patient was transfused , total of 9 units of packed RBC.. Patient had a bone marrow biopsy done on 09/16/[address] Neff. Per hematology likely DIC secondary to sepsis was lymphoma. CMV IgG was positive. Today-no new issues. Hemolysis workup per hematology. Tolerate to some diet. Hemoglobin did drop down to 5.9 last night. Was transfused blood. Again very keen to go home. Review of systems: Was done for constitutional, cardiovascular, GI, pulmonary. relevant finding as above Active Medications Acetaminophen (Tylenol Tab) 650 mg PO Q6HR PRN PRN Reason: Mild Pain or Fever > 100.5 Last Admin: 09/15/19 22:11 Dose: 650 mg Documented by: Hydrocodone Bitart/Acetaminophen ([place] 5-325) 1 each PO Q6H PRN PRN Reason: Pain Last Admin: 09/19/19 05:07 Dose: 1 each Documented by: Allopurinol (Zyloprim) 100 mg PO DAILY [facility] Last Admin: 09/20/19 09:20 Dose: 100 mg Documented by: Ascorbic Acid (Vitamin C) 500 mg PO DAILY [facility] Last Admin: 09/20/19 09:20 Dose: 500 mg Documented by: Cholecalciferol (Vitamin D3) 400 unit PO DAILY [facility] Last Admin: 09/20/19 09:20 Dose: 400 unit Documented by: Sodium Chloride (Saline 0.9%) 1,000 mls @ 20 mls/hr IV .Q24H [facility] Last Admin: 09/20/19 12:16 Dose: Not Given Documented by: Lactated Ringer's (Lactated Ringers) 1,000 mls @ 20 mls/hr IV .Q24H [facility] Last Admin: 09/20/19 06:28 Dose: Not Given Documented by: Lidocaine HCl (.Xylocaine 1% Inj (10mg/Ml) For Iv Start) 0.1 ml INTRADERMA PER PROTOCOL PRN PRN Reason: IV Start Lidocaine HCl (Xylocaine Viscous) 5 ml MUCOUS MEM Q4HR PRN PRN Reason: Mouth Sore Pain Last Admin: 09/20/19 16:06 Dose: 5 ml Documented by: Naloxone HCl (Narcan) 0.2 mg IV Q2M PRN PRN Reason: Opioid Reversal Nystatin (Mycostatin Oral Susp) 500,000 unit PO QID [facility] Last Admin: 09/20/19 16:11 Dose: Not Given Documented by: Ondansetron HCl (Zofran) 4 mg IVP Q8HR PRN PRN Reason: Nausea And Vomiting Pantoprazole Sodium (Protonix) 40 mg PO AC-BRKFST [facility] Last Admin: 09/20/19 06:32 Dose: 40 mg Documented by: Prednisone () 20 mg PO DAILY [facility] Last Admin: 09/20/19 12:16 Dose: 20 mg Documented by: Sodium Bicarbonate () 5 ml PO 5XD [facility] Last Admin: 09/20/19 20:31 Dose: Not Given Documented by: Sodium Bicarbonate () 5 ml PO QID PRN PRN Reason: Pain Valacyclovir HCl (Valtrex) 1,000 mg PO TID [facility] Last Admin: 09/20/19 16:10 Dose: 1,000 mg Documented by: Physical examination: VITAL SIGNS: 97.8, 90, 18, 110/57, 99% room air GENERAL:, sitting up in a chair, comfortable EYES: Pupils equal. Conjunctiva normal. HEENT: Oral aphthous ulcers including that on the lips. NECK: JVD not raised; masses not palpable. HEART: First and second heart sounds are normal; no edema. LUNGS: Respiratory rate normal; clear to auscultation. ABDOMEN: Soft, nontender, liver spleen not palpable, no masses palpable. PSYCH: Alert and oriented x3; mood and affect slightly anxiousl. INVESTIGATIONS, reviewed in the clinical context: Hemoglobin 5.9 platelets 16 Previous testing White count 2.7 hemoglobin 7.5 platelets 19 Sodium 132 crit 0.55 CMV IgM antibody nonreactive Chest x-ray negative Fibrinogen 116 d-dimer 2.3 to LDH 1560 haptoglobin less than 8 Assessment: -Angioimmunoblastic T-cell lymphoma, progressive disease status post chemotherapy and autologous bone marrow transplantation. Possible salvage treatment to be started soon. 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 Per hematolog y patient can go home tomorrow after blood transfusion. Follow up in the clinic on Sunday.
[2019-09-21 05:26] VITALS: RESP 18
[2019-09-21 06:15] LABS: African American GFR (CKD) >90 (>60 ml/min/1.73 sqM); Anion Gap 4 mmol/L; Blood Urea Nitrogen 28 mg/dL (7-17); Calcium 8.2 mg/dL (8.4-10.2); Carbon Dioxide 30 mmol/L (22-30); Chloride 102 mmol/L (98-107); Glucose 97 mg/dL (74-99); Non-African American GFR(CKD) >90 (>60 ml/min/1.73 sqM); Potassium 3.9 mmol/L (3.5-5.1); Sodium 136 mmol/L (137-145)
[2019-09-21] MEDS: LACTATED RINGERS 1,000 ML IV SCH (06:21)
[2019-09-21] MEDS: SALT AND SODA MOUTHWASH 1,000 ML PO SCH ×3 (06:22→11:23)
[2019-09-21 06:31] LABS: HCT 20.6 % (34.0-46.0); HGB 7.3 gm/dL (11.4-16.0); MCH 29.9 pg (25.0-35.0); MCHC 35.8 g/dL (31.0-37.0); MCV 83.6 fL (80.0-100.0); Mean Platelet Volume 9.2; RBC 2.46 m/uL (3.80-5.40); RDW 15.4 % (11.5-15.5); WBC 3.6 k/uL (3.8-10.6)
[2019-09-21 06:40] LABS: Platelet Count 18 k/uL (150-450)
[2019-09-21] MEDS: PANTOPRAZOLE 40 MG TABLET PO SCH (06:46)
[2019-09-21] MEDS: NYSTATIN 100,000 UNIT/ML SUSP 500,000 UNIT/5 ML CUP PO SCH ×2 (07:45→11:23)
[2019-09-21] MEDS: valACYclovir HCL 1,000 MG TABLET PO SCH ×2 (07:51→13:35)
[2019-09-21] MEDS: predniSONE 20 MG TAB PO SCH (07:51)
[2019-09-21] MEDS: LIDOCAINE VISCOUS 2% 15 ML CUP MUCOUS MEM PRN (07:51)
[2019-09-21] MEDS: CHOLECALCIFEROL 400 UNIT TAB PO SCH (07:51)
[2019-09-21] MEDS: ALLOPURINOL 100 MG TAB PO SCH (07:51)
[2019-09-21] MEDS: ASCORBIC ACID 500 MG TAB PO SCH (07:51)
[2019-09-21 08:05] VITALS: BP 109/62; PULSE 92; TEMP 97.4
[2019-09-21 09:08] LABS: Lymphocytes # (M) 1.62 k/uL (1.0-4.8); Monocytes # (M) 0.36 k/uL (0-1.0); Neutrophils # (M) 1.62 k/uL (1.3-7.7); Neutrophils % (M) 45 %; Nucleated Red Blood Cells 0 /100 WBC (0-0); Total Cells Counted 100
[2019-09-21] MEDS: SODIUM CHLORIDE 0.9% 1,000 ML IV SCH (11:23)
--- NOTE | 2019-09-21 19:57 | P.PN ---
Subjective Progress Note Date: 09/21/19 Principal diagnosis: patient seen in follow-up, continues to be stable has ulcers which are not healing yet Pleasant 58-year-old female with a known history of T-cell lymphoma status post stem cell transplant and 72,019 at [facility], admitted with generalized weakness and fatigue and worsening mouth ulcers. She has positive cytomegalovirus as well. Currently having pancytopenia and transfusion dependent. 09/20/2019, the patient continues to need PRBC almost 9 units so far given continues to have hemolysis nonimmune. Objective - Vital Signs Vital signs: Vital Signs Temp 97.4 F L 09/21/19 08:00 Pulse 92 09/21/19 08:00 Resp 18 09/21/19 08:00 BP 109/62 09/21/19 08:00 Pulse Ox 99 09/21/19 08:00 Intake & Output 09/21/19 09/21/19 09/22/19 06:59 18:59 06:59 Intake Total 620 0 Balance 620 0 Weight 114.9 kg Intake: IV 0 0.9 0 Blood Product 620 Rc Irr As1 Unit 310 [id number] Rc Irr As1 Unit 310 [id number] Other: Voiding Method Toilet Toilet # Voids 1 - Exam The patient appeared well nourished and normally developed. Vital signs as documented. Head exam is unremarkable. No scleral icterus or corneal arcus noted. Neck is without jugular venous distension, thyromegaly, or carotid bruits. Carotid upstrokes are brisk bilaterally. Lungs are clear to auscultation and percussion. Cardiac exam reveals the PMI to be normally sized and situated. Rhythm is regular. First and second heart sounds normal. No murmurs, rubs or g allops. Abdominal exam reveals normal bowel sounds, no masses, no organomegaly and no aortic enlargement. Extremities are nonedematous and both femoral and pedal pulses are normal. - Labs CBC & Chem 7: 09/21/19 05:18 09/21/19 05:18 Labs: Abnormal Lab Results - Last 24 Hours (Table) 09/20/19 09/21/19 09/21/19 Range/Units 12:00 05:18 05:18 WBC 3.6 L (3.8-10.6) k/uL RBC 2.46 L (3.80-5.40) m/uL Hgb 7.3 L (11.4-16.0) gm/dL Hct 20.6 L (34.0-46.0) % Plt Count 18 L* (150-450) k/uL Sodium 136 L (137-145) mmol/L BUN 28 H (7-17) mg/dL Creatinine 0.47 L (0.52-1.04) mg/dL Calcium 8.2 L (8.4-10.2) mg/dL Crossmatch See Detail Microbiology - Last 24 Hours (Table) 09/14/19 22:50 Blood Culture - Final Blood No Growth after 144 hours Assessment and Plan Assessment: Impression and plan: 1. Relapsed refractory angioimmunoblastic T-cell lymphoma: - Status post chemotherapy followed by autologousstem cell transplant in November 2018. Currently disease progression with documentation from PET scan. - Patient symptomatic with a rash, adenopathy, or ulcers. - Status post a staging bone marrow biopsy.on 09/16/2019. - Plan for consideration of salvage treatment. Likely to be started next week. - Status post pulse steroids, - Plan for chemotherapy with Romidepsin next week, as outpatient. 2. Persistent pancytopenia with anemia, thrombocytopenia: Hemolytic anemia. likely DIC secondary to sepsis vs Lymphoma: - Transfusions to keep hemoglobin above 7 and platelets of 10,000. - Status post bone marrow biopsy. - I am to check haptoglobin, LDH, monitoring and continue transfusions. - Haptoglobin is less than 8,PT/INR normal, fibrinogen low at 116, d-dimer elevated,LDH high at 1560, calcium is low,cheng test is negative. - Nonimmune hemolysis. check cold agglutinin, mycoplasma. - Repeat haptoglobin and LDH, checked plasma free hemoglobin, urine hemosiderin - close monitoring as outpatient repeat CBC CMP. - continues to hemolysis, again needed blood today. Patient wants to go home explained to her the risks. - We will likely go home today and will follow up very closely with clinic in 1 or 2 days.he has an appointment in the morning at 8:45 AM 3. CMV infection with CMV serology positive. 4. Persistent oral sores non-resolving posttreatment. Most recent hemoglobin 7.1 and platelets 17,000. Thank you for allowing me to participate in the care of your patient. Marj Fabian MD [employer], [facility] Hematology Oncology [id number], [address] [place] [address] Office: [phone] Time with Patient: Less than 30
--- NOTE | 2019-09-21 23:14 | P.DS ---
Providers Date of admission: 09/13/19 12:49 Expected date of discharge: 09/21/19 Attending physician: Usman Castillo Consults: 09/13/19 12:50 Consult Physician Routine Consulting Provider: Nikky Aguirre Consult Reason/Comments: anemia, hx of bone marrow transplant, tcell lymphoma Do you want consulting provider notified?: Yes 09/13/19 14:54 Consult Physician Routine Consulting Provider: Stanislaw Amaro Consult Reason/Comments: cmv? 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 Presented then with a rash and adenopathy. She was treated with chemotherapy followed by autologous stem cell transplant in November 2018. Subsequently a PET scan was done and patient still to progression of the disease with further adenopathy and splenomegaly. Present to the ER with feeling weak and tired. Also hemoglobin of 3.5. Platelets of 40. Also has oral aphthous ulcers. Patient was transfused , total of 11 units of packed RBC.. Patient had a bone marrow biopsy done on 09/16/[address] Neff. Per hematology likely DIC secondary to sepsis or lymphoma. CMV IgG was positive. Today-feeling comfortable today. No new issues. Discharge planning was discussed with the patient. She is an appointment tomorrow morning at the hematology clinic. He'll also have lab draws done tomorrow morning. She understands further planning as per hematology.. Okay by hematology to be discharged. Consultants: Dr. Amaro from ID Dr. Neff/Dr. Fabian from oncology Physical examination: VITAL SIGNS: 97.4, 92, 18, 109/62, 99% room air GENERAL:, sitting up in a chair, comfortable, some bruising EYES: Pupils equal. Conjunctiva pale HEENT: Oral aphthous ulcers including that on the lips. NECK: JVD not raised; masses not palpable. HEART: First and second heart sounds are normal; no edema. LUNGS: Respiratory rate normal; clear to auscultation. ABDOMEN: Soft, nontender, liver spleen not palpable, no masses palpable. PSYCH: Alert and oriented x3; mood and affect normal INVESTIGATIONS, reviewed in the clinical context: White count 3.6 hemoglobin 7.3 platelet 18 progression 3.9 creatine 0.47 Previous testing White count 2.7 hemoglobin 7.5 platelets 19 Sodium 132 crit 0.55 CMV IgM antibody nonreactive Chest x-ray negative Fibrinogen 116 d-dimer 2.3 to LDH 1560 haptoglobin less than 8 Assessment: -Angioimmunoblastic T-cell lymphoma, progressive disease status post chemotherapy and autologous bone marrow transplantation. Possible salvage treatment to be started soon. 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 -Pancytopenia secondary to disease process, -Oral cavity aphthous ulcers -Hyponatremia suspect normal osmolar -Lactic acidosis upon presentation to be from volume contraction -CMV IgG positive Disposition: Home Patient Condition at Discharge: Undetermined Plan - Discharge Summary Discharge Rx Participant: No New Discharge Prescriptions: New Dexamethasone 4 mg PO ONCE #10 tablet valACYclovir HCL [Valtrex] 1,000 mg PO TID #60 tablet Lidocaine Viscous 2% [Xylocaine Viscous] 5 ml MUCOUS MEM Q4HR PRN ml PRN Reason: Mouth Sore Pain Continue Allopurinol [Zyloprim] 100 mg PO DAILY Cholecalciferol [Vitamin D3] 400 unit PO DAILY Ascorbic Acid [Vitamin C] 500 mg PO DAILY HYDROcodone/APAP 5-325MG [[place] 5-325] 1 tab PO Q6H PRN PRN Reason: Pain Discontinued methylPREDNISolone Dose Pack [Medrol Dose Pack] See Taper PO DAILY Discharge Medication List Allopurinol [Zyloprim] 100 mg PO DAILY 09/03/19 [History] Ascorbic Acid [Vitamin C] 500 mg PO DAILY 09/13/19 [History] Cholecalciferol [Vitamin D3] 400 unit PO DAILY 09/13/19 [History] HYDROcodone/APAP 5-325MG [[place] 5-325] 1 tab PO Q6H PRN 09/13/19 [History] Dexamethasone 4 mg PO ONCE #10 tablet 09/17/19 [Rx] Lidocaine Viscous 2% [Xylocaine Viscous] 5 ml MUCOUS MEM Q4HR PRN ml 09/21/19 [Rx] valACYclovir HCL [Valtrex] 1,000 mg PO TID #60 tablet 09/21/19 [Rx] Follow up Appointment(s)/Referral(s): Yeyo Rainey MD [Primary Care Provider] - 1 Week Gera Dhillon MD [STAFF PHYSICIAN] - 09/25/19 8:00 am Patient Instructions/Handouts: Anemia (DC) Activity/Diet/Wound Care/Special Instructions: BLOOD DRAW AT DR. DHILLON'S OFFICE SUNDAY MORNING AT 845 Discharge Disposition: HOME SELF-CARE
[2019-09-22 03:02] LABS: Herpes simplex I and/or II IgM 2.52 INDEX (<=0.90); Herpes simplex IgG II Ab 0.26 (< or = 0.90)
[2019-09-22 14:00] LABS: Hepatitis B Virus DNA Not detected (Not detected); Hepatitis B Virus DNA, Quant <10 IU/mL (<10); Log HBV IU/mL <1.00 (<1.00)
== END 2019-09-21 13:40 | disposition home or self-care (01) | DRG 840 ==
LOC: EC 10:19 → 3SCARD 12:49
PROVIDERS: ADMIT Hospitalist; ATTEND Hospitalist
PROC: 30233N1 Transfusion of Nonautologous Red Blood Cells into Peripheral Vein, Percutaneous Approach (ICD-10-PCS; principal; 2019-09-13)
PROC: 07DR3ZX Extraction of Iliac Bone Marrow, Percutaneous Approach, Diagnostic (ICD-10-PCS; 2019-09-16)
DX: C86.5 Angioimmunoblastic T-cell lymphoma (principal); D65 Disseminated intravascular coagulation [defibrination syndrome]; B25.9 Cytomegaloviral disease, unspecified; D61.818 Other pancytopenia; D58.9 Hereditary hemolytic anemia, unspecified; E87.1 Hypo-osmolality and hyponatremia; E87.2 Acidosis; K12.2 Cellulitis and abscess of mouth; Z94.81 Bone marrow transplant status; Z94.84 Stem cells transplant status; K12.0 Recurrent oral aphthae; K12.1 Other forms of stomatitis; Z79.899 Other long term (current) drug therapy; Z80.49 Family history of malignant neoplasm of other genital organs; Z86.19 Personal history of other infectious and parasitic diseases; Z88.3 Allergy status to other anti-infective agents; Z91.030 Bee allergy status
CPT/HCPCS: 36415; 36430; 38222; 71046; 80048; 80053; 82272; 82607; 82746; 83010; 83540; 83550; 83605; 83615; 83735; 84100; 84145; 84439; 84443; 84481; 84550; 85025; 85027; 85045; 85379; 85384; 85610; 85652; 85730; 86157; 86644; 86645; 86663; 86664; 86665; 86694; 86695; 86696; 86704; 86705; 86706; 86850; 86870; 86880; 86900; 86901; 86902; 86920; 87040; 87497; 87517; 93005; 94760; 96361; 96374; 96375; 99285

== ENCOUNTER → 2019-10-03 | Outpatient (CLI) | payer BC ==
[~2019-10-03] MED LIST changes: -LACTATED RINGERS 1,000 ML IV SCH; -LIDOCAINE 1% 20 ML VIAL (10MG/ML) FOR IV START INTRADERMA PRN; -MIDAZOLAM 2 MG/2 ML VIAL IV PRN; +SODIUM CHLORIDE 0.9% 500 ML 500 ML in EMPTY BAG 1 BAG IV PRN
[2019-10-03 08:07] VITALS: RESP 16
[2019-10-03] MEDS: FUROSEMIDE 10 MG/ML 2 ML VIAL IV NR ×2 (10:03→12:21)
[2019-10-03 12:21] VITALS: BP 99/61; PULSE 87; TEMP 98.6
== END | disposition home or self-care (01) ==
LOC: PROCWHC3 07:50
PROVIDERS: ATTEND Internal Medicine Hematology & Oncology
DX: C86.5 Angioimmunoblastic T-cell lymphoma (principal); R21 Rash and other nonspecific skin eruption; R63.4 Abnormal weight loss; R59.0 Localized enlarged lymph nodes
CPT/HCPCS: 86900; 86901; 86902; 86850; 86920; 86870; 86880; 36430; 96374; 96375; P9016; J1940; 86860; 86885

== ENCOUNTER → 2019-10-07 | Outpatient (CLI) | payer BC ==
[2019-10-07 12:48] VITALS: RESP 16
[2019-10-07 16:37] VITALS: BP 98/62; PULSE 98; TEMP 99.5
== END | disposition home or self-care (01) ==
LOC: PROCWHC3 11:03
PROVIDERS: ATTEND Internal Medicine Hematology & Oncology
DX: C86.5 Angioimmunoblastic T-cell lymphoma (principal)
CPT/HCPCS: 86900; 86901; 86902; 86850; 86920; 86870; 86880; 36430; P9016; P9035; J1642; 86860; 86885; 86904

== ENCOUNTER → 2019-10-10 | Outpatient (CLI) | payer BC ==
[~2019-10-10] MED LIST changes: +FUROSEMIDE 10 MG/ML 2 ML VIAL IV ONE; +ONDANSETRON 8 MG in SODIUM CHLORIDE 0.9% 50 ML IVPB ONE
[2019-10-10 12:04] VITALS: PULSE 87
[2019-10-10 13:46] VITALS: BP 94/52; RESP 16; TEMP 98.4
== END | disposition home or self-care (01) ==
LOC: PROCWHC3 08:44
PROVIDERS: ATTEND Internal Medicine Hematology & Oncology
DX: Z51.11 Encounter for antineoplastic chemotherapy (principal); C86.5 Angioimmunoblastic T-cell lymphoma
CPT/HCPCS: 86900; 86901; 86902; 86850; 86920; 86870; 86880; 96367; 36430; 96375; P9016; J1940; J2405; J1642

== ENCOUNTER → 2019-10-14 | Outpatient (CLI) | payer BC ==
[~2019-10-14] MED LIST changes: -FUROSEMIDE 10 MG/ML 2 ML VIAL IV ONE; -ONDANSETRON 8 MG in SODIUM CHLORIDE 0.9% 50 ML IVPB ONE
[2019-10-14 17:15] VITALS: RESP 16
[2019-10-14 18:29] VITALS: TEMP 98.4
[2019-10-14 18:41] VITALS: BP 95/54; PULSE 78
== END | disposition home or self-care (01) ==
LOC: PROCWHC3 10:22
PROVIDERS: ATTEND Internal Medicine Hematology & Oncology
DX: C86.5 Angioimmunoblastic T-cell lymphoma (principal)
CPT/HCPCS: 36430; 86850; 86860; 86870; 86880; 86885; 86900; 86901; 86902; 86920

== ENCOUNTER → 2019-10-17 | Outpatient (CLI) | payer BC ==
[2019-10-17 13:22] VITALS: RESP 16
[2019-10-17 15:25] VITALS: TEMP 98.4
[2019-10-17 15:42] VITALS: BP 88/55; PULSE 86
== END | disposition home or self-care (01) ==
LOC: PROCWHC3 12:19
PROVIDERS: ATTEND Internal Medicine Hematology & Oncology
DX: C86.5 Angioimmunoblastic T-cell lymphoma (principal)
CPT/HCPCS: 86900; 86901; 86902; 86850; 86920; 86870; 86880; 36430; P9016; J1642; 86860

== ENCOUNTER → 2019-10-21 | Outpatient (CLI) | payer BC ==
[2019-10-21 09:42] VITALS: RESP 16
[2019-10-21 12:15] VITALS: BP 95/65; PULSE 88; TEMP 99.1
== END | disposition home or self-care (01) ==
LOC: PROCWHC3 09:10
PROVIDERS: ATTEND Internal Medicine Hematology & Oncology
DX: D64.81 Anemia due to antineoplastic chemotherapy (principal)
CPT/HCPCS: 36430; 86850; 86860; 86870; 86880; 86900; 86901; 86902; 86920

== ENCOUNTER → 2019-10-24 | Outpatient (CLI) | payer BC ==
[2019-10-24 09:50] VITALS: RESP 16
[2019-10-24 12:55] VITALS: BP 94/62; PULSE 88; TEMP 98.5
== END | disposition home or self-care (01) ==
LOC: PROCWHC3 09:37
PROVIDERS: ATTEND Internal Medicine Hematology & Oncology
DX: C86.5 Angioimmunoblastic T-cell lymphoma (principal)
CPT/HCPCS: 86900; 86901; 86902; 86850; 86920; 86870; 86880; 36430; P9016; J1642

== ENCOUNTER → 2019-10-30 | Outpatient (CLI) | payer BC ==
--- NOTE | 2019-10-30 15:24 | XR ---
EXAMINATION TYPE: XR chest 2V DATE OF EXAM: 10/30/2019 COMPARISON: 09/13/2019 TECHNIQUE: PA and lateral views submitted. HISTORY: Weakness FINDINGS: Mediport catheter on the right noted. There is subsegmental consolidation and small left effusion. No pneumothorax. Right lung is clear. Hypertrophic and degenerative change of the spine. IMPRESSION: 1. Left-sided consolidation and pleural effusion is new from the prior exam correlate clinically.
== END | disposition home or self-care (01) ==
LOC: RADXRWHC 14:56
PROVIDERS: ATTEND Internal Medicine Hematology & Oncology
DX: J90 Pleural effusion, not elsewhere classified (principal); R21 Rash and other nonspecific skin eruption; R63.4 Abnormal weight loss; R59.0 Localized enlarged lymph nodes
CPT/HCPCS: 71046

== ENCOUNTER → 2019-10-31 | Outpatient (CLI) | payer BC ==
[2019-10-31 10:15] VITALS: PULSE 105; RESP 18
[2019-10-31 10:59] VITALS: BP 97/65; TEMP 98.6
== END | disposition home or self-care (01) ==
LOC: PROCWHC3 07:22
PROVIDERS: ATTEND Internal Medicine Hematology & Oncology
DX: C86.5 Angioimmunoblastic T-cell lymphoma (principal)
CPT/HCPCS: 86900; 86901; 86902; 86850; 86920; 86870; 86880; 36430; P9016; J1642; 86860; 86885

== ENCOUNTER → 2019-11-06 | Outpatient (CLI) | payer BC ==
[2019-11-06 17:14] VITALS: RESP 18
[2019-11-06 18:55] VITALS: BP 90/55; PULSE 103; TEMP 98
== END | disposition home or self-care (01) ==
LOC: PROCWHC3 13:08
PROVIDERS: ATTEND Internal Medicine Hematology & Oncology
DX: Z51.11 Encounter for antineoplastic chemotherapy (principal); C86.5 Angioimmunoblastic T-cell lymphoma
CPT/HCPCS: 36430; 86900; 86901; 86902; 86850; 86920; 86870; 86880; P9016; P9035; J1642